=== PATIENT | female | born 1980 | race American Indian/Alaskan Native ===

== ENCOUNTER 2017-03-14 17:24 | Emergency (ER) | payer OTHER ==
[2017-03-14 17:24] VITALS: BMI 42.5
[2017-03-14] MEDS ORDERED: Acetaminophen 650mg/20.3ml solution UD PO STA (17:39)
--- NOTE | 2017-03-14 17:48 | ED PDOC ---
Arrival/HPI - General Chief Complaint: Abdominal Pain Time Seen by Provider: 03/14/17 17:28 Historian: Patient - History of Present Illness Narrative History of Present Illness (Text): 03/14/17 17:48 A 36 year old female, whose past medical history includes hypertension, presents to the emergency department complaining of lower abdominal pain. pain is shart pain to the suprapubic region. Patient is currently on her menstrual cycle and describes pain as cramping. Reports no bowel movements in two days. Patient also notes a cough,a runny nose, and nausea but denies any vomiting, diarrhea or any other complaints at this time. pt reports "heavy periods", no gi bleeding, dark stool, melena, hematochezia. 03/14/17 21:41 Symptom Onset: Sudden Symptom Course: Unchanged Quality: Cramping Activities at Onset: Rest Context: Home Past Medical History - Provider Review Nursing Documentation Reviewed: Yes - Infectious Disease Hx of Infectious Diseases: None - Cardiac Hx Hypertension: Yes - Hematological/Oncological Hx Anemia: Yes - Psychiatric Hx Substance Use: No - Surgical History Hx Section: Yes (x1) - Anesthesia Hx Anesthesia: No - Suicidal Assessment Feels Threatened In Home Enviroment: No Family/Social History - Physician Review Nursing Documentation Reviewed: Yes Family/Social History: No Known Family HX Smoking Status: Unknown If Ever Smoked Hx Alcohol Use: Yes Hx Substance Use: No Hx Substance Use Treatment: No Allergies/Home Meds Allergies/Adverse Reactions: Allergies Penicillins Allergy (Verified 03/14/17 17:34) ANAPHYLAXIS Review of Systems - Physician Review All systems were reviewed & negative as marked: Yes - Review of Systems ENT: Other (runny nose) Respiratory: Cough Gastrointestinal: Abdominal Pain (lower ), Nausea. absent: Diarrhea, Vomiting Physical Exam Vital Signs Reviewed: Yes Vital Signs Temp Pulse Resp BP Pulse Ox 03/14/17 21:25 87 18 129/81 98 03/14/17 19:24 85 18 130/79 98 03/14/17 17:24 98.6 F 93 H 18 127/80 98 Appearance: Positive for: Well-Appearing, Non-Toxic, Comfortable Pain Distress: None Mental Status: Positive for: Alert and Oriented X 3 - Systems Exam Head: Present: Atraumatic, Normocephalic Pupils: Present: PERRL Extroacular Muscles: Present: EOMI Conjunctiva: Present: Normal Mouth: Present: Moist Mucous Membranes Neck: Present: Normal Range of Motion Respiratory/Chest: Present: Clear to Auscultation, Good Air Exchange. No: Respiratory Distress, Accessory Muscle Use Cardiovascular: Present: Regular Rate and Rhythm, Normal S1, S2. No: Murmurs Abdomen: Present: Tenderness (RLQ and LLQ), Normal Bowel Sounds. No: Distention , Peritoneal Signs Back: Present: Normal Inspection Upper Extremity: Present: Normal Inspection. No: Cyanosis, Edema Lower Extremity: Present: Normal Inspection. No: Edema Neurological: Present: GCS=15, CN II-XII Intact, Speech Normal Skin: Present: Warm, Dry, Normal Color. No: Rashes Psychiatric: Present: Alert, Oriented x 3, Normal Insight, Normal Concentration Medical Decision Making ED Course and Treatment: 03/14/17 17:46 Impression: A 36 year old female with lower abdominal pain. r/o fibrioids, ovarian cyst, appendicitis Plan: -- US transvaginal -- labs -- Urinalysis -- Tylenol -- Reassess and disposition Prior Visits: Notes and results from previous visits were reviewed. Patient was last seen in the emergency department on 12/29/14 for evaluation of b/l knee pain. Progress Notes: US Pelvis Complete, Transabdominal FINDINGS: Limitations: Body habitus. Uterus/cervix: Uterus measures 11.7 x 5.7 x 6.5 cm in size. No myometrial mass. Nabothian cysts. Endometrium: 0.8 cm in thickness. Right ovary: Not visualized. Left ovary: 2.5 x 3.1 x 2.7 cm in size. No mass. Normal flow. Free fluid: No significant free fluid. Bladder: Unremarkable as visualized. IMPRESSION: 1. No acute findings. US Pelvis, Transvaginal FINDINGS: Limitations: Body habitus. Uterus/cervix: Uterus measures 11.7 x 5.7 x 6.5 cm in size. No myometrial mass. Nabothian cysts. Endometrium: 0.8 cm in thickness. Right ovary: Not visualized. Left ovary: 2.5 x 3.1 x 2.7 cm in size. No mass. Normal flow. Free fluid: No significant free fluid. Bladder: Empty bladder which cannot be evaluated with this probe. IMPRESSION: 1. No acute findings. Dictated and Authenticated by: Alex Lopes MD 03/14/2017 7:28 PM Eastern Time ([place] & [place]) CT Abdomen and Pelvis With Intravenous Contrast IMPRESSION: 1. Probable left basilar pneumonia. Followup to resolution to exclude underlying pathology. 2. Pulmonary nodules. For low-risk patients, no follow-up is necessary. For high -risk patients (smoking history or other known risk factors) an optional CT at 12 months could be performed. 3. Incidental/non-acute findings are described above. Dictated and Authenticated by: Alex Lopes MD 03/14/2017 9:02 PM Eastern Time ([place] & [place]) 03/14/17 21:17 Leaving Against Medical Advice (AMA): The patient is choosing to leave against medical advice. I have personally explained to the patient that choosing to do so may result in permanent bodily harm or . I have discussed at great length that without further evaluation and monitoring there may be unforeseen circumstances and/or deterioration causing permanent bodily harm or as a result of their choice. The patient is alert, oriented, and shows the mental capacity to make clear decisions regarding the patients health care at this time. The patient continues to wish to leave against medical advice. The patient has been advised that they should return to the emergency room immediately if they change their mind at any time, or if their condition begins to change or worsen in any way. 03/14/17 21:41 pt noted to be anemic. reports heavy periods. ct also shows possible pna. pt reports significant fatigue. requested pt to be admitted for possible blood transfusion and iv antibiotics. pt refuses. understands risks. signs ama. [facility] called later with addendum of possible filling defect, possible pe. pt left the department prior to addendum. attempted to reach pt to notify, number is incorrect. Addendum created by Alex Lopes MD on 03/14/2017 9:36 PM Eastern Time ([place] & [place]) THIS REPORT CONTAINS FINDINGS THAT MAY BE CRITICAL TO PATIENT CARE. The findings were verbally communicated via telephone conference with Luis Angel Irvin at 9:36 PM EST on 03/14/2017. The findings were acknowledged and understood. Addendum created by Alex Lopes MD on 03/14/2017 9:18 PM Eastern Time ([place] & [place]) CORRECTION Lower thorax: Groundglass opacities within left upper, lower lobes. Patchy airspace disease within posterior left lower lobe. Apparent filling defects within branches of left lower lobe pulmonary artery, possibly branches of right lower lobe pulmonary artery. 0.4 cm LEFT upper lobe nodule. IMPRESSION: 1. Suspect pulmonary emboli. Suggest chest CTA when clinically able. 2. Left basilar groundglass/airspace disease. DDX: Pneumonia, infarct. 3. Pulmonary nodules. For low-risk patients, no follow-up is necessary. For high -risk patients (smoking history or other known risk factors) an optional CT at 12 months could be performed. 4. Incidental/non-acute findings are described above. Initial Report created on 03/14/2017 9:02 PM Eastern Time ([place] & [place]) 03/16/17 19:32 vrad later noted addedum. non working numbers, telegram sent. - Lab Interpretations Microbiology Results: Microbiology Results 03/14/17 17:55 Urine,Clean Catch Urine Culture - Final No Growth (<1,000 CFU/ML) Lab Results: 03/14/17 17:55 03/14/17 17:55 Lab Results 03/14/17 21:00: Blood Type Confirm O POSITIVE 03/14/17 20:09: Blood Type O POSITIVE, Antibody Screen Positive, Antibody Identification Anti M, Antigen Identification M Antigen - NEGATIVE, BBK History Checked No verified bt 03/14/17 17:55: Sodium 141, Potassium 4.1, Chloride 107, Carbon Dioxide 26, Anion Gap 12, BUN 7, Creatinine 0.8, Est GFR ( Amer) > 60, Est GFR (Non- Af Amer) > 60, Random Glucose 92, Calcium 8.8, Total Bilirubin 0.3, AST 26, ALT 23, Alkaline Phosphatase 94, Total Protein 8.1, Albumin 3.8, Globulin 4.3, Albumin/Globulin Ratio 0.9 L, Lipase 45 03/14/17 17:55: PT 12.4, INR 1.13 H, APTT 27.9 03/14/17 17:55: WBC 10.6, RBC 4.34, Hgb 7.6 L, Hct 28.4 L, MCV 65.4 L, MCH 17.5 L, MCHC 26.8 L, RDW 19.3 H, Plt Count 386, MPV 9.0, Gran % 71.6 H, Lymph % (Auto ) 19.5 L, Roberts % (Auto) 7.8 H, Eos % (Auto) 1.0 L, Baso % (Auto) 0.1, Gran # 7.57 H, Lymph # 2.1, Roberts # 0.8 H, Eos # 0.1, Baso # 0.01 03/14/17 17:48: Urine Color Light red, Urine Appearance Turbid, Urine pH 6.0, Ur Specific [place] 1.020, Urine Protein 30 H, Urine Glucose (UA) Negative, Urine Ketones Negative, Urine Blood Large H, Urine Nitrate Negative, Urine Bilirubin Negative, Urine Urobilinogen 0.2, Ur Leukocyte Esterase Moderate H, Urine RBC Tntc, Urine WBC 15 - 20, Ur Epithelial Cells 6 - 8, Urine Bacteria Few , Urine HCG, Qual Negative I have reviewed the lab results: Yes - RAD Interpretation Radiology Orders: 03/14/17 17:40 TRANSVAGINAL [US] Stat 03/14/17 19:32 ABD & PELVIS IV CONTRAST ONLY [CT] Stat - Medication Orders Current Medication Orders: Discontinued Medications Acetaminophen (Tylenol 650mg/20.3ml Solution Ud) 975 mg PO STAT STA Stop: 03/14/17 17:40 Last Admin: 03/14/17 18:06 Dose: 975 mg MAR Pain/Vitals Document 03/14/17 18:06 GMD (Rec: 03/14/17 18:07 [id number] Pain Reassessment Is This A Pain ReAssessment? No Sleep Is patient sleeping during reassessment? No Presence of Pain Presence of Pain Yes Location Pain Location Body Site Abdomen Sodium Chloride (Sodium Chloride 0.9%) 1,000 mls @ 999 mls/hr IV .Q1H1M STA Stop: 03/14/17 19:20 Last Admin: 03/14/17 19:11 Dose: 999 mls/hr eMAR Start Stop Document 03/14/17 19:11 GMD (Rec: 03/14/17 19:11 [id number] Intravenous Solution Start Date 03/14/17 Start Time 19:11 End Date 03/14/17 End time 20:12 Total Infusion Time 61 Levofloxacin (Levaquin) 750 mg PO STAT STA Stop: 03/14/17 21:14 Last Admin: 03/14/17 21:25 Dose: 750 mg - Scribe Statement The provider has reviewed the documentation as recorded by the Scribe Belqes Mau Provider Scribe Attestation: All medical record entries made by the Chayoibjonna were at my direction and personally dictated by me. I have reviewed the chart and agree that the record accurately reflects my personal performance of the history, physical exam, medical decision making, and the department course for this patient. I have also personally directed, reviewed, and agree with the discharge instructions and disposition. Disposition/Present on Arrival - Present on Arrival Any Indicators Present on Arrival: No History of DVT/PE: No History of Uncontrolled Diabetes: No Urinary Catheter: No History of Decub. Ulcer: No History Surgical Site Infection Following: None - Disposition Have Diagnosis and Disposition been Completed?: Yes Diagnosis: Anemia, Abdominal pain, Pneumonia Disposition: AGAINST MEDICAL ADVICE Disposition Time: 10:00 Condition: UNKNOWN Discharge Instructions (ExitCare): Dysfunctional Uterine Bleeding (ED), Bacterial Pneumonia (ED), Against Medical Advice (ED), Anemia (ED) Additional Instructions: please follwow up with your doctor/specialist. return to er with worsening symptoms or concerns. Prescriptions: levoFLOXacin [Levaquin] 750 mg PO DAILY #10 tab Referrals: oSfi Segura, [Primary Care Provider] - Follow up with primary Ger Ramirez MD [Medical Doctor] - Follow up with primary Andie Mijares MD [Medical Doctor] - Follow up with primary Forms: [email or web address] (Spanish)
[2017-03-14 17:59] LABS: URINE BILIRUBIN NEGATIVE (NEGATIVE); URINE BLOOD LARGE (NEGATIVE); URINE GLUCOSE (UA) NEGATIVE (NEGATIVE); URINE KETONE NEGATIVE (NEGATIVE); URINE LEUKOCYTE ESTERASE MODERATE Leu/uL (NEGATIVE); URINE PROTEIN 30 mg/dL (<30 mg/dL); URINE UROBILINOGEN 0.2 E.U./dL (<1 E.U./dL)
[2017-03-14 18:00] LABS: URINE APPEARANCE TURBID (CLEAR); URINE COLOR LIGHT RED (YELLOW)
[2017-03-14 18:12] LABS: URINE BACTERIA FEW (NEG); URINE RBC TNTC /hpf (0-2); URINE WBC 15 - 20 /hpf (0-6)
[2017-03-14 18:13] VITALS: RESP 18; TEMP 98.6; O2SAT 98
[2017-03-14 18:15] LABS: BASO # 0.01 K/mm3 (0.0-2.0); BASO % 0.1 % (0.0-3.0); EOS # 0.1 (0.0-0.7); GRAN # 7.57 (1.4-6.5); GRAN % 71.6 % (50.0-68.0); HEMATOCRIT 28.4 % (36.0-48.0); LYMPH # 2.1 (1.2-3.4); LYMPH % 19.5 % (22.0-35.0); MEAN CELL VOLUME 65.4 fl (80.0-105.0); MEAN CORPUSCULAR HEMOGLOBIN 17.5 pg (25.0-35.0); MEAN CORPUSCULAR HGB CONC 26.8 g/dl (31.0-37.0); MONO # 0.8 (0.1-0.6); MONO % 7.8 % (1.0-6.0); RED CELL DISTRIBUTION WIDTH 19.3 % (11.5-14.5); WHITE BLOOD COUNT 10.6 10^3/ul (4.5-11.0)
[2017-03-14] MEDS ORDERED: Sodium Chloride 0.9% 1,000 ML IV STA (18:20)
[2017-03-14 18:25] LABS: ALB/GLOB RATIO 0.9 (1.1-1.8); ALKALINE PHOSPHATASE 94 U/L (38-126); ALT/SGPT 23 U/L (7-56); AST/SGOT 26 U/L (14-36); BILIRUBIN,TOTAL 0.3 mg/dL (0.2-1.3); BLOOD UREA NITROGEN 7 mg/dL (7-21); CALCIUM 8.8 mg/dL (8.4-10.5); CARBON DIOXIDE 26 mmol/L (21-33); CHLORIDE 107 mmol/L (98-107); GFR AFRICAN-AMERICAN > 60; GLUCOSE,RANDOM 92 mg/dL (70-110); INR 1.13 (0.93-1.08); LIPASE 45 U/L (23-300); PARTIAL THROMBOPLASTIN TIME 27.9 Seconds (25.1-36.5); POTASSIUM 4.1 mmol/L (3.6-5.0); SODIUM 141 mmol/L (132-148); TOTAL PROTEIN 8.1 g/dL (5.8-8.3)
--- NOTE | 2017-03-14 19:29 | US ---
EXAM: US Pelvis Complete, Transabdominal CLINICAL HISTORY: 36 years old, female; Pain; Pelvic pain; Patient HX: Patient 273lbs TECHNIQUE: Real-time transabdominal pelvic ultrasound (complete) with image documentation. COMPARISON: No relevant prior studies available. FINDINGS: Limitations: Body habitus. Uterus/cervix: Uterus measures 11.7 x 5.7 x 6.5 cm in size. No myometrial mass. Nabothian cysts. Endometrium: 0.8 cm in thickness. Right ovary: Not visualized. Left ovary: 2.5 x 3.1 x 2.7 cm in size. No mass. Normal flow. Free fluid: No significant free fluid. Bladder: Unremarkable as visualized. IMPRESSION: 1.No acute findings. EXAM: US Pelvis, Transvaginal CLINICAL HISTORY: 36 years old, female; Pain; Pelvic pain; Patient HX: Patient 273lbs TECHNIQUE: Real-time transvaginal pelvic ultrasound (complete) with image documentation. Transvaginal imaging was used for better evaluation of the endometrium and adnexa. COMPARISON: No relevant prior studies available. FINDINGS: Limitations: Body habitus. Uterus/cervix: Uterus measures 11.7 x 5.7 x 6.5 cm in size. No myometrial mass. Nabothian cysts. Endometrium: 0.8 cm in thickness. Right ovary: Not visualized. Left ovary: 2.5 x 3.1 x 2.7 cm in size. No mass. Normal flow. Free fluid: No significant free fluid. Bladder: Empty bladder which cannot be evaluated with this probe. IMPRESSION: 1.No acute findings.
[2017-03-14] MEDS ORDERED: Iohexol 350 MG/100 ML VIAL ONE (19:36)
--- NOTE | 2017-03-14 21:03 | CT ---
EXAM: CT Abdomen and Pelvis With Intravenous Contrast CLINICAL HISTORY: 36 years old, female; Pain; Abdominal pain; Localized; Lower; Prior surgery; Surgery date: 6+ months; Surgery type: HX section; Additional info: Lower abd pain TECHNIQUE: Axial computed tomography images of the abdomen and pelvis with intravenous contrast. All CT scans at this facility use one or more dose reduction techniques, viz.: automated exposure control; ma/kV adjustment per patient size (including targeted exams where dose is matched to indication; i.e. head); or iterative reconstruction technique. Coronal and sagittal reformatted images were created and reviewed. CONTRAST: 100 mL of OMNI 350 administered intravenously. COMPARISON: US - TRANSVAGINAL 2017-03-14 18:19 FINDINGS: Lower thorax: Groundglass opacities within left upper, lower lobes. Patchy airspace disease within posterior left lower lobe. 0.4 cm LEFT upper lobe nodule. ABDOMEN: Liver: Unremarkable. No mass. Gallbladder and bile ducts: No calcified stones. No ductal dilation. Pancreas: No ductal dilation. No mass. Spleen: No splenomegaly. Probable splenule. Adrenals: No mass. Kidneys and ureters: No mass. No hydronephrosis. Stomach and bowel: No definite mural thickening. No obstruction. Appendix: Normal caliber. No inflammation. PELVIS: Bladder: Unremarkable. Reproductive: Unremarkable as visualized. ABDOMEN and PELVIS: Intraperitoneal space: No significant fluid collection. No free air. Bones/joints: Bone island. No acute fracture. Soft tissues: Pfannenstiel scar. Tiny umbilical hernia containing fat. Vasculature: Unremarkable. No aneurysm. Lymph nodes: No pathologically enlarged lymph nodes. IMPRESSION: 1. Probable left basilar pneumonia. Followup to resolution to exclude underlying pathology. 2. Pulmonary nodules. For low-risk patients, no follow-up is necessary. For high-risk patients (smoking history or other known risk factors) an optional CT at 12 months could be performed. 3. Incidental/non-acute findings are described above.
[2017-03-14] MEDS ORDERED: levoFLOXacin 750 mg in D5W 750 MG/150 ML BAG IVPB STA (21:06)
[2017-03-14] MEDS ORDERED: levoFLOXacin 750 MG TAB PO STA (21:13)
[2017-03-14 21:50] VITALS: BP 129/81; PULSE 87
== END 2017-03-14 21:30 | disposition left against medical advice (07) ==
LOC: ED 17:24
DX: D64.9 Anemia, unspecified (principal); J18.9 Pneumonia, unspecified organism; R10.30 Lower abdominal pain, unspecified; I10 Essential (primary) hypertension
CPT/HCPCS: 74177; 76830; 80053; 81001; 83690; 84703; 85025; 85610; 85730; 86850; 86860; 86870; 86900; 87086; 96360; 99285; J7040; Q9967

== ENCOUNTER 2017-03-24 04:43 | Inpatient (IN) | payer OTHER ==
[2017-03-24 04:48] VITALS: BMI 46.8
--- NOTE | 2017-03-24 05:09 | ED PDOC ---
Arrival/HPI - General Chief Complaint: Chest Pain Time Seen by Provider: 03/24/17 04:50 Historian: Patient - History of Present Illness Narrative History of Present Illness (Text): 03/24/17 05:08 She Parisi is a 36 year old female, whose past medical history includes hypertension, who presents to the Emergency department complaining of chest pain and shortness of breath tonight. Patient also reports associated cough and chills for the past few days. Patient was seen in the Emergency department for similar symptoms and noted to be anemic with possible pneumonia. Patient was offered hospital admission for blood transfusion and further evaluation but left against medical advice. Patient was given a presciption for Levaquin but states she never filled it. Addendum added to original CT report also noted possible PE, but patient left ER prior. Patient denies any fever, abdominal pain , nausea, vomiting, diarrhea, back pain, neck pain, headache, dizziness, or any other complaints. Symptom Onset: Gradual Symptom Course: Worsening Activities at Onset: Light Context: Home Past Medical History - Provider Review Nursing Documentation Reviewed: Yes - Infectious Disease Hx of Infectious Diseases: None - Cardiac Hx Hypertension: Yes - Hematological/Oncological Hx Anemia: Yes - Psychiatric Hx Depression: No Hx Emotional Abuse: No Hx Physical Abuse: No Hx Substance Use: No - Surgical History Hx Section: Yes (x1) - Anesthesia Hx Anesthesia: No - Suicidal Assessment Feels Threatened In Home Enviroment: No Family/Social History - Physician Review Nursing Documentation Reviewed: Yes Family/Social History: Unknown Family HX Smoking Status: Unknown If Ever Smoked Hx Alcohol Use: Yes Hx Substance Use: No Hx Substance Use Treatment: No Allergies/Home Meds Allergies/Adverse Reactions: Allergies Penicillins Allergy (Verified 03/24/17 04:48) ANAPHYLAXIS Home Medications: Home Meds Medication Instructions Recorded Confirmed No Known Home Med 03/24/17 03/24/17 Review of Systems - Physician Review All systems were reviewed & negative as marked: Yes - Review of Systems Constitutional: Other (+chills) Eyes: Normal ENT: Normal Respiratory: SOB, Cough Cardiovascular: Chest Pain Gastrointestinal: Normal. absent: Abdominal Pain, Diarrhea, Nausea, Vomiting Genitourinary Female: Normal. absent: Dysuria, Frequency, Hematuria, Urine Output Changes Musculoskeletal: Normal. absent: Back Pain, Neck Pain Skin: Normal. absent: Rash Neurological: Normal. absent: Headache, Dizziness Endocrine: Normal Hemo/Lymphatic: Normal Psychiatric: Normal Physical Exam Vital Signs Reviewed: Yes Vital Signs Temp Pulse Resp BP Pulse Ox 03/24/17 04:59 98.2 F 99 H 17 135/88 98 Temperature: Afebrile Blood Pressure: Normal Pulse: Regular Respiratory Rate: Normal Appearance: Positive for: Well-Appearing, Non-Toxic, Comfortable Pain Distress: None Mental Status: Positive for: Alert and Oriented X 3 - Systems Exam Head: Present: Atraumatic, Normocephalic Pupils: Present: PERRL Extroacular Muscles: Present: EOMI Conjunctiva: Present: Normal Mouth: Present: Moist Mucous Membranes Neck: Present: Normal Range of Motion Respiratory/Chest: Present: Rhonchi (Rhonchi bilaterally). No: Respiratory Distress, Accessory Muscle Use Cardiovascular: Present: Regular Rate and Rhythm, Normal S1, S2. No: Murmurs Abdomen: Present: Normal Bowel Sounds. No: Tenderness, Distention, Peritoneal Signs Back: Present: Normal Inspection Upper Extremity: Present: Normal Inspection. No: Cyanosis, Edema Lower Extremity: Present: Normal Inspection. No: Edema Neurological: Present: GCS=15, CN II-XII Intact, Speech Normal Skin: Present: Warm, Dry, Normal Color. No: Rashes Psychiatric: Present: Alert, Oriented x 3, Normal Insight, Normal Concentration Medical Decision Making ED Course and Treatment: 03/24/17 05:08 Impression: 36 year old female complaining of chest pain, shortness of breath, chills, and cough. Plan: -- CTA Chest -- EKG -- Chest X-ray -- Labs, cardiac enzymes -- Reassess and disposition Prior Visits: Notes and results from previous visits were reviewed. On 03/14/2017, pt was seen in the Emergency department lower abdominal pain, cough, runny nose, and nausea. Pt noted to be anemic and underwent CT Abdomen and Pelvis which showed: 1. Suspect pulmonary emboli. Suggest chest CTA when clinically able. 2. Left basilar groundglass/airspace disease. DDX: Pneumonia, infarct. 3. Pulmonary nodules. For low-risk patients, no follow-up is necessary. For high-risk patients (smoking history or other known risk factors) an optional CT at 12 months could be performed. 4. Incidental/non-acute findings. Pt was d/c on Levaquin but left AMA prior to receiving CT addendum results. Progress Notes: Reviewed EKG, sinus tachycardia at 108 bpm. Non-specific T wave changes. - Lab Interpretations Lab Results: 03/24/17 05:00 03/24/17 05:00 Lab Results 03/24/17 05:00: WBC 14.7 H D, RBC 4.74, Hgb 8.1 L, Hct 30.9 L, MCV 65.2 L, MCH 17.1 L, MCHC 26.2 L, RDW 19.3 H, Plt Count 398, MPV 9.4 03/24/17 05:00: Sodium 142, Potassium 3.9, Chloride 105, Carbon Dioxide 26, Anion Gap 15, BUN 9, Creatinine 0.8, Est GFR ( Amer) > 60, Est GFR (Non- Af Amer) > 60, Random Glucose 101, Calcium 9.3, Total Bilirubin 0.4, AST 35, ALT 22, Alkaline Phosphatase 110, Lactate Dehydrogenase 763 H, Total Creatine Kinase 186, Troponin I < 0.01, Total Protein 8.7 H, Albumin 4.0, Globulin 4.7, Albumin/Globulin Ratio 0.9 L 03/24/17 05:00: PT 12.0, INR 1.09 H, APTT 28.6 - RAD Interpretation Radiology Orders: 03/24/17 05:14 CHEST PORTABLE [RAD] Stat 03/24/17 05:15 ANGIO CHEST PE PROTOCOL [CT] Stat - EKG Interpretation Interpreted by ED Physician: Yes Type: 12 lead EKG - Medication Orders Current Medication Orders: Levofloxacin/Dextrose (Levaquin 750mg) 750 mg in 150 mls @ 100 mls/hr IV STAT STA PRN Reason: Protocol Stop: 03/24/17 08:08 - Transfer of Care Patient signed out to Dr:: Shelia Pending Radiology Studies:: CT Angio Chest/reassess/final disposition - Scribe Statement The provider has reviewed the documentation as recorded by the Chayoibjonna Peres Provider Scribe Attestation: All medical record entries made by the Scribe were at my direction and personally dictated by me. I have reviewed the chart and agree that the record accurately reflects my personal performance of the history, physical exam, medical decision making, and the department course for this patient. I have also personally directed, reviewed, and agree with the discharge instructions and disposition. Disposition/Present on Arrival - Present on Arrival Any Indicators Present on Arrival: No History of DVT/PE: No History of Uncontrolled Diabetes: No Urinary Catheter: No History of Decub. Ulcer: No History Surgical Site Infection Following: None - Disposition Have Diagnosis and Disposition been Completed?: No Diagnosis: Chest pain, SOB (shortness of breath) Disposition Time: 07:00 Condition: STABLE Discharge Instructions (ExitCare): Chest Pain (ED) Forms: [employer] ([place])
[2017-03-24 06:04] LABS: HEMOGLOBIN 8.1 g/dL (12.0-16.0); MEAN CELL VOLUME 65.2 fl (80.0-105.0); MEAN CORPUSCULAR HEMOGLOBIN 17.1 pg (25.0-35.0); MEAN CORPUSCULAR HGB CONC 26.2 g/dl (31.0-37.0); MEAN PLATELET VOLUME 9.4 fl (7.0-11.0); RBC 4.74 10^6/uL (3.5-6.1); RED CELL DISTRIBUTION WIDTH 19.3 % (11.5-14.5); WHITE BLOOD COUNT 14.7 10^3/ul (4.5-11.0)
[2017-03-24 06:18] LABS: INR 1.09 (0.93-1.08); PARTIAL THROMBOPLASTIN TIME 28.6 Seconds (25.1-36.5)
[2017-03-24 06:21] LABS: TROPONIN I < 0.01 ng/mL
[2017-03-24 06:33] LABS: ALB/GLOB RATIO 0.9 (1.1-1.8); ALT/SGPT 22 U/L (7-56); AST/SGOT 35 U/L (14-36); BLOOD UREA NITROGEN 9 mg/dL (7-21); CALCIUM 9.3 mg/dL (8.4-10.5); GFR AFRICAN-AMERICAN > 60; GFR NON-AFRICAN AMERICAN > 60
[2017-03-24] MEDS ORDERED: levoFLOXacin 750 mg in D5W 750 MG/150 ML BAG IV STA (06:39)
[2017-03-24] MEDS ORDERED: Iohexol 300 100 ML IJ ONE (07:03)
--- NOTE | 2017-03-24 08:00 | ED PDOC ---
Physical Exam Vital Signs Reviewed: Yes Vital Signs Temp Pulse Resp BP Pulse Ox 03/24/17 04:59 98.2 F 99 H 17 135/88 98 Appearance: Positive for: Well-Appearing, Non-Toxic, Comfortable Pain Distress: None Mental Status: Positive for: Alert and Oriented X 3 Medical Decision Making ED Course and Treatment: 03/24/17 07:00 Case signed out to me by Dr. Hinkle. Pending follow up CT angio chest, reassessment and final disposition. 03/24/17 12:[address] scan; CT chest done without contrast. CTA repeated and shows PE. pt started on lovenox. - Lab Interpretations Lab Results: 03/24/17 05:00 03/24/17 05:00 Lab Results 03/24/17 05:00: WBC 14.7 H D, RBC 4.74, Hgb 8.1 L, Hct 30.9 L, MCV 65.2 L, MCH 17.1 L, MCHC 26.2 L, RDW 19.3 H, Plt Count 398, MPV 9.4 03/24/17 05:00: Sodium 142, Potassium 3.9, Chloride 105, Carbon Dioxide 26, Anion Gap 15, BUN 9, Creatinine 0.8, Est GFR ( Amer) > 60, Est GFR (Non- Af Amer) > 60, Random Glucose 101, Calcium 9.3, Total Bilirubin 0.4, AST 35, ALT 22, Alkaline Phosphatase 110, Lactate Dehydrogenase 763 H, Total Creatine Kinase 186, Troponin I < 0.01, Total Protein 8.7 H, Albumin 4.0, Globulin 4.7, Albumin/Globulin Ratio 0.9 L 03/24/17 05:00: PT 12.0, INR 1.09 H, APTT 28.6 I have reviewed the lab results: Yes - RAD Interpretation Radiology Orders: 03/24/17 05:14 CHEST PORTABLE [RAD] Stat 03/24/17 05:15 ANGIO CHEST PE PROTOCOL [CT] Stat 03/24/17 12:21 CHEST W/O CONTRAST [CT] Stat 03/24/17 12:23 LUNG PERF & VENT SCAN [NM] Stat - Medication Orders Current Medication Orders: Discontinued Medications Levofloxacin/Dextrose (Levaquin 750mg) 750 mg in 150 mls @ 100 mls/hr IV STAT STA PRN Reason: Protocol Stop: 03/24/17 08:08 Last Admin: 03/24/17 08:49 Dose: 100 mls/hr eMAR Start Stop Document 03/24/17 08:49 GMI (Rec: 03/24/17 08:50 GMI [id number]) Intravenous Solution Start Date 03/24/17 Start Time 08:50 End Date 03/24/17 End time 08:55 Total Infusion Time 5 Re-Assess: Re-Assessment for infusion Document 03/24/17 09:06 GMI (Rec: 03/24/17 09:06 GMI [id number]) Infusion Charges Initiated Have Infusion Stop Date and Time been Yes entered? - Scribe Statement The provider has reviewed the documentation as recorded by the Georgie León Provider Scribe Attestation: All medical record entries made by the Scribe were at my direction and personally dictated by me. I have reviewed the chart and agree that the record accurately reflects my personal performance of the history, physical exam, medical decision making, and the department course for this patient. I have also personally directed, reviewed, and agree with the discharge instructions and disposition. Disposition/Present on Arrival - Present on Arrival Any Indicators Present on Arrival: No History of DVT/PE: No History of Uncontrolled Diabetes: No Urinary Catheter: No History of Decub. Ulcer: No History Surgical Site Infection Following: None - Disposition Have Diagnosis and Disposition been Completed?: Yes Diagnosis: Chest pain, SOB (shortness of breath), Pulmonary embolism Disposition: HOSPITALIZED Disposition Time: 15:03 Condition: STABLE
--- NOTE | 2017-03-24 12:18 | RAD ---
HISTORY: SOB COMPARISON: Comparison chest 07/13/2013 FINDINGS: LUNGS: Poor inspiration with low lung volumes, crowded bronchovascular markings and mild bibasilar atelectasis. PLEURA: No significant pleural effusion identified, no pneumothorax apparent. CARDIOVASCULAR: Cardiomegaly. OSSEOUS STRUCTURES: No significant abnormalities. VISUALIZED UPPER ABDOMEN: Normal. OTHER FINDINGS: None. IMPRESSION: Poor inspiration with low lung volumes, crowded bronchovascular markings and mild bibasilar atelectasis.
[2017-03-24] MEDS ORDERED: Azithromycin 500MG/NS 250ml 500 MG/250 ML BAG IVPB STA (12:24)
[2017-03-24] MEDS ORDERED: cefTRIAXone 1 gm 1 GM/100 ML BAG IVPB STA (12:27)
[2017-03-24] MEDS ORDERED: Sodium Chloride 0.9% 1,000 ML IV SCH (12:45)
[2017-03-24] MEDS ORDERED: Iodixanol 320 MG/ML 100 ML BOTTLE IV ONE (13:53)
--- NOTE | 2017-03-24 15:35 | CARD ---
APPROVED REPORT EKG Measurement Heart [id number] <Conclusion> Sinus tachycardia Nonspecific T wave abnormality Abnormal ECG
[2017-03-24] MEDS ORDERED: Enoxaparin 120 mg Syringe SC STA (15:56)
--- NOTE | 2017-03-24 16:00 | CP.PCM.HP ---
<Addy Haddad - Last Filed: 03/24/17 16:28> History of Present Illness - History of Present Illness History of Present Illness: cc: chest pain HPI: Patient is a 36yo female with past medical history of hypertension that presented c/o chest pain. She reported that the chest pain began 1 week prior and was associated with shortness of breath. She reported having come to [place] ED on the for similar symptoms and signed out AMA at that time. Today, she reports that her chest pain has been worsening over the last week and she has difficulty breathing most notably on inspiration. She stated that the chest pain also started radiating to her left shoulder. She admitted to subjective fevers and chills. In the ED, CTA with PE protocol was done and was notable for PE. Patient was subsequently admitted for further evaluation/ treatment. 12point ROS as per HPI above, otherwise negative PMH: hypertension PSH: x1, 14 yrs prior Allergies: reported being told she was allergic to penicillin however tolerated rocephin in the ED Social Hx: Denies tobacco use, admits to alcohol use daily, denies illicit drug use Family Hx: Mother: HTN; Father: unknown Present on Admission - Present on Admission Any Indicators Present on Admission: No Past Patient History - Infectious Disease Hx of Infectious Diseases: None - Past Social History Smoking Status: Unknown If Ever Smoked - CARDIAC Hx Hypertension: Yes - HEMATOLOGICAL/ONCOLOGICAL Hx Anemia: Yes - PSYCHIATRIC Hx Depression: No Hx Emotional Abuse: No Hx Physical Abuse: No Hx Substance Use: No - SURGICAL HISTORY Hx Section: Yes (x1) - ANESTHESIA Hx Anesthesia: No Meds Allergies/Adverse Reactions: Allergies Allergy/AdvReac Type Severity Reaction Status Date / Time Penicillins Allergy ANAPHYLAXIS Verified 03/24/17 04:48 levofloxacin [From Levaquin] AdvReac ITCHING Verified 03/24/17 09:19 Physical Exam - Constitutional Appears: No Acute Distress Additional comments: obese - Head Exam Head Exam: ATRAUMATIC, NORMAL INSPECTION, NORMOCEPHALIC - Eye Exam Eye Exam: EOMI, PERRL - ENT Exam ENT Exam: Mucous Membranes Moist - Neck Exam Neck exam: Positive for: Normal Inspection - Respiratory Exam Respiratory Exam: Decreased Breath Sounds. absent: Rales, Rhonchi, Wheezes - Cardiovascular Exam Cardiovascular Exam: RRR, +S1, +S2. absent: Gallop, JVD, Rubs, Systolic Murmur - GI/Abdominal Exam GI & Abdominal Exam: Soft. absent: Distended, Firm, Guarding, Rebound, Rigid, Tenderness - Extremities Exam Extremities exam: Positive for: normal inspection. Negative for: calf tenderness, tenderness Additional comments: non-pitting edema - Neurological Exam Neurological exam: Alert, CN II-XII Intact, Oriented x3 - Psychiatric Exam Psychiatric exam: Normal Affect, Normal Mood - Skin Skin Exam: Dry, Intact, Normal Color, Warm Results - Vital Signs Recent Vital Signs: Last Vital Signs Temp 98 F 03/24/17 10:43 Pulse 99 H 03/24/17 10:43 Resp 19 03/24/17 10:43 BP 123/81 03/24/17 12:47 Pulse Ox 99 03/24/17 10:43 - Labs Result Diagrams: 03/24/17 05:00 03/24/17 05:00 Labs: Laboratory Results - last 24 hr 03/24/17 03/24/17 03/24/17 05:00 05:00 05:00 WBC 14.7 H D RBC 4.74 Hgb 8.1 L Hct 30.9 L MCV 65.2 L MCH 17.1 L MCHC 26.2 L RDW 19.3 H Plt Count 398 MPV 9.4 Retic Count PT 12.0 INR 1.09 H APTT 28.6 Sodium 142 Potassium 3.9 Chloride 105 Carbon Dioxide 26 Anion Gap 15 BUN 9 Creatinine 0.8 Est GFR ( Amer) > 60 Est GFR (Non-Af Amer) > 60 Random Glucose 101 Calcium 9.3 Total Bilirubin 0.4 AST 35 ALT 22 Alkaline Phosphatase 110 Lactate Dehydrogenase 763 H Total Creatine Kinase 186 Troponin I < 0.01 Total Protein 8.7 H Albumin 4.0 Globulin 4.7 Albumin/Globulin Ratio 0.9 L 03/24/17 05:00 WBC RBC Hgb Hct MCV MCH MCHC RDW Plt Count MPV Retic Count 2.10 H PT INR APTT Sodium Potassium Chloride Carbon Dioxide Anion Gap BUN Creatinine Est GFR ( Amer) Est GFR (Non-Af Amer) Random Glucose Calcium Total Bilirubin AST ALT Alkaline Phosphatase Lactate Dehydrogenase Total Creatine Kinase Troponin I Total Protein Albumin Globulin Albumin/Globulin Ratio Assessment & Plan - Assessment and Plan (Free Text) Plan: 36yo female with history of hypertension presents c/o chest pain secondary to pulmonary embolism 1. Pulmonary embolism -CTA reviewed; revealed large pulmonary embolus seen in the left lower lobe pulmonary artery with associated infarct and small left-sided effusion; see full report for further details -EKG reviewed; revealed sinus tachycardia at 108bpm with nonspecific T wave abnormality -CXR reviewed; revealed poor inspiration with low lung volume, crowded bronchovascular markings and mild bibasilar atelectasis -Patient received therapeutic lovenox in the ED, will continue with lovenox 1mg/ kg SC q12h -Lower extremity duplex pending -Coagulopathy workup pending: factor V leidin, prothrombin, protein c, protein s , etc. -Pulmonary consulted - Dr. Bruner -Patient to be transitioned to oral anticoagulation 2. Hypertension -Reportedly not on oral antihypertensives; will monitor at this time 3. GI/DVT prophylaxis -protonix/lovenox Patient seen and case discussed/reviewed with attending, Dr. Fischer <Aleisha Fischer - Last Filed: 03/25/17 14:40> Results - Vital Signs Recent Vital Signs: Last Vital Signs Temp 98.3 F 03/25/17 06:00 Pulse 90 03/25/17 06:00 Resp 18 03/25/17 06:00 BP 99/49 L 03/25/17 06:00 Pulse Ox 100 03/25/17 10:00 - Labs Result Diagrams: 03/25/17 06:30 03/25/17 06:30 Labs: Laboratory Results - last 24 hr 03/24/17 03/24/17 03/24/17 16:50 16:50 16:50 WBC RBC Hgb Hct MCV MCH MCHC RDW Plt Count MPV Gran % Lymph % (Auto) [place] % (Auto) Eos % (Auto) Baso % (Auto) Gran # Lymph # [place] # Eos # Baso # PT INR APTT Sodium Potassium Chloride Carbon Dioxide Anion Gap BUN Creatinine Est GFR ( Amer) Est GFR (Non-Af Amer) Random Glucose Calcium Iron 17 L TIBC 368 % Saturation 5 L Ferritin 3.9 Total Bilirubin AST ALT Alkaline Phosphatase Troponin I < 0.01 Total Protein Albumin Globulin Albumin/Globulin Ratio Vitamin B12 262 Folate 12.7 03/24/17 03/25/17 03/25/17 21:40 06:30 06:30 WBC 12.0 H RBC 4.21 Hgb 7.2 L Hct 27.4 L MCV 65.1 L MCH 17.1 L MCHC 26.3 L RDW 19.1 H Plt Count 261 MPV 9.3 Gran % 69.5 H Lymph % (Auto) 22.6 [place] % (Auto) 6.4 H Eos % (Auto) 1.4 L Baso % (Auto) 0.1 Gran # 8.30 H Lymph # 2.7 [place] # 0.8 H Eos # 0.2 Baso # 0.01 PT INR APTT Sodium 139 Potassium 4.6 Chloride 104 Carbon Dioxide 24 Anion Gap 15 BUN 9 Creatinine 0.7 Est GFR ( Amer) > 60 Est GFR (Non-Af Amer) > 60 Random Glucose 94 Calcium 9.1 Iron TIBC % Saturation Ferritin Total Bilirubin 0.4 AST 19 ALT 31 Alkaline Phosphatase 97 Troponin I < 0.01 Total Protein 7.5 Albumin 3.4 Globulin 4.1 Albumin/Globulin Ratio 0.8 L Vitamin B12 Folate 03/25/17 06:30 WBC RBC Hgb Hct MCV MCH MCHC RDW Plt Count MPV Gran % Lymph % (Auto) [place] % (Auto) Eos % (Auto) Baso % (Auto) Gran # Lymph # [place] # Eos # Baso # PT 13.0 H INR 1.18 H APTT 27.2 Sodium Potassium Chloride Carbon Dioxide Anion Gap BUN Creatinine Est GFR ( Amer) Est GFR (Non-Af Amer) Random Glucose Calcium Iron TIBC % Saturation Ferritin Total Bilirubin AST ALT Alkaline Phosphatase Troponin I Total Protein Albumin Globulin Albumin/Globulin Ratio Vitamin B12 Folate Attending/Attestation - Attestation I have personally seen and examined this patient.: Yes I have fully participated in the care of the patient.: Yes I have reviewed all pertinent clinical information: Yes Notes (Text): I have seen and examined the patient at bedside. Agree with the above note with the following additions/ exceptions: Briefly this is 36 year old female with history of uncontrolled hypertension non complaint with medications, chronic anemia, morbid obesity (BMI 46) who came for evaluation of dry cough, chest pain and shortness of breath. Patient was seen in ED about a week ago and was told that she needed to get blood transfusion. At that time, patient decided to leave AMA because she was feeling better. She came back today for worsening of symptoms. CTA revealed large PE in LLL with associated infarct and small effusion. LE duplex and hypercoagulable work up ordered. She was started on lovenox. Will order procal. Will obtain pulmonary consult. Patient states that she has been sitting a lot due to recent illness. Denies smoking history, otc drug use, recent surgery, previous thromboembolism or FH of thromboembolism. Upon discharge patient will follow up with Dr Newton. Dr Aleisha Fischer
--- NOTE | 2017-03-24 16:17 | CT ---
PROCEDURE: CT Chest with contrast (Pulmonary Angiogram) HISTORY: SOB. Hypoxia. Rule out PE. COMPARISON: None available. TECHNIQUE: Axial computed tomography images were obtained of the chest in the pulmonary arterial phase of enhancement. Coronal and sagittal reformatted images were created and reviewed. Intravenous contrast dose: 100 cc Visipaque 320 Radiation dose: Total exam DLP = 529.72 mGy-cm. This CT exam was performed using one or more of the following dose reduction techniques: Automated exposure control, adjustment of the mA and/or kV according to patient size, and/or use of iterative reconstruction technique. FINDINGS: PULMONARY ARTERIES: The current study reveals large filling defect in the descending left pulmonary artery consistent with pulmonary embolus. Consolidation changes in the left lung base/posterior sulcus likely sequela of a infarct. Small associated left-sided effusion. Pulmonary trunk measures approximately 2.84 cm AORTA: No acute findings. No thoracic aortic aneurysm. Ascending thoracic aorta measures approximately 3.41 cm and descending thoracic aorta measures approximately 2.66 cm LUNGS: Unremarkable. No nodule, mass or pulmonary consolidation. PLEURAL SPACES: As above. No evidence of pneumothorax HEART: Heart remains enlarged. No significant pericardial effusion. . LYMPH NODES: Multiple pace may mildly enlarged bilateral axillary lymph nodes. BONES, CHEST WALL: Unremarkable. No fracture or destructive lesion OTHER FINDINGS: Liver is enlarged measuring nearly 20 cm in CC dimension. . Spleen remains enlarged measuring approximately 13 cm in AP dimension. IMPRESSION: Large pulmonary embolus seen in the left lower lobe pulmonary artery with associated infarct and small left-sided effusion as above. Enlarged bilateral axillary lymph nodes. Hepatomegaly. Splenomegaly. Findings discussed with Dr. Bass at approximately 3:50 p.m. with written down and read back verification.
[2017-03-24 17:22] LABS: IRON 17 ug/dL (45-180)
[2017-03-24 17:37] LABS: TOTAL IRON BINDING CAPACITY 368 ug/dL (265-497)
[2017-03-24] MEDS ORDERED: Iron Sucrose 100 mg/5 ml Inj IVP ONE (18:36)
[2017-03-24 19:04] LABS: % IRON SATURATION 5 % (20-55)
[2017-03-24 21:21] LABS: FERRITIN 3.9 ng/mL
[2017-03-24 21:54] LABS: FOLATE 12.7 ng/mL
[2017-03-25] MEDS: Enoxaparin 120 mg Syringe SC SCH ×2 (04:30→16:27)
--- NOTE | 2017-03-25 05:25 | CON ---
DATE: 03/24/2017 REFERRING PHYSICIAN: Scott Roberts MD HISTORY OF PRESENT ILLNESS: This is a 36-year-old female with past medical history significant for hypertension, came into the emergency room with a 1-week history of rhinitis, bronchitis, cough and chest pain. She was in the ER a few days ago and signed herself against medical advice and left, also claimed to have fever and chills. Head CT done, which shows large pulmonary emboli seen at the left upper lobe of pulmonary artery with associated infarct and small left-sided effusion. There is also subaxillary lymph node - large, hepatomegaly. Denied any hemoptysis. No nausea, no vomiting and no diarrhea. Denied any leg swelling or leg pain. PAST MEDICAL HISTORY: Hypertension and obesity. ALLERGIES: ALLERGIES TO PENICILLIN IN THE PAST BUT DID HAVE ROCEPHIN AND DID OKAY. SOCIAL HISTORY: Denied any alcohol use, socially drinks, denied any IVDA. FAMILY HISTORY: Positive for hypertension. MEDICATIONS: She is on Lovenox 120 mg subcutaneous twice a day, Protonix 40 mg daily, IV fluid normal saline 100 mL per hour. REVIEW OF SYSTEMS: No headache, had some rhinitis and cough a few days ago with the chest pain and shortness of breath. No nausea, no vomiting, no diarrhea. No leg pain or leg swelling. PHYSICAL EXAMINATION: GENERAL: Lying in the bed with a mild chest discomfort. VITAL SIGNS: Temperature is 98, heart rate 96, respiratory rate 18, blood pressure 125/62, pulse ox 96% on room air. HEENT: Moist mucous membrane. Crowded airway. Mallampati score is IV. NECK: Supple. No JVD. LUNGS: Has a fair airflow with rhonchi. HEART: S1 and S2. ABDOMEN: Soft, nontender, no organomegaly. EXTREMITIES: There is no edema. NEUROLOGICALLY: Awake, alert, and follows simple commands. LABORATORY DATA: Shows hemoglobin 8.1, hematocrit 30.9, WBC 14.7, platelet is 398, reticulocyte count is 2.10. INR 1.09. PTT is 29. Sodium 142, potassium 3.9, chloride 105, bicarbonate 26, BUN 9, creatinine 0.8, glucose 101, calcium 9.3. Iron 17, TIBC 368, AST 35, ALT 22, alkaline phos is 110. LDH 763. Troponin less than 0.01. Albumin is 4.0. IMPRESSION AND PLAN: Pulmonary embolism, anemia - probably iron-deficiency, obesity, sleep apnea syndrome, history of hypertension. I agree with the present management, continue anticoagulation, discontinue intravenous fluid, add gastric prophylaxis. We will add intravenous iron while waiting for the rest of the anemia workup. We will order venous Doppler of lower extremities, need workup for coagulopathy. Thank you and we will follow with you. Cyndy Bruner MD
[2017-03-25] MEDS: Pantoprazole 40 mg EC Tab PO SCH (05:34)
[2017-03-25 07:22] LABS: BASO # 0.01 K/mm3 (0.0-2.0); BASO % 0.1 % (0.0-3.0); EOS # 0.2 (0.0-0.7); EOS % 1.4 % (1.5-5.0); GRAN # 8.3 (1.4-6.5); GRAN % 69.5 % (50.0-68.0); LYMPH # 2.7 (1.2-3.4); LYMPH % 22.6 % (22.0-35.0); MEAN CELL VOLUME 65.1 fl (80.0-105.0); MEAN CORPUSCULAR HEMOGLOBIN 17.1 pg (25.0-35.0); MEAN CORPUSCULAR HGB CONC 26.3 g/dl (31.0-37.0); MEAN PLATELET VOLUME 9.3 fl (7.0-11.0); MONO # 0.8 (0.1-0.6); MONO % 6.4 % (1.0-6.0); RBC 4.21 10^6/uL (3.5-6.1); RED CELL DISTRIBUTION WIDTH 19.1 % (11.5-14.5)
[2017-03-25 07:41] LABS: INR 1.18 (0.93-1.08); PARTIAL THROMBOPLASTIN TIME 27.2 Seconds (25.1-36.5)
[2017-03-25 07:52] LABS: HEMOGLOBIN 7.2 g/dL (12.0-16.0)
[2017-03-25 07:56] LABS: ALB/GLOB RATIO 0.8 (1.1-1.8); ALBUMIN 3.4 g/dL (3.0-4.8); ALT/SGPT 31 U/L (7-56); AST/SGOT 19 U/L (14-36); BLOOD UREA NITROGEN 9 mg/dL (7-21); CALCIUM 9.1 mg/dL (8.4-10.5); GFR AFRICAN-AMERICAN > 60; GFR NON-AFRICAN AMERICAN > 60
--- NOTE | 2017-03-25 14:07 | CP.PCM.PN ---
<Smith Jang - Last Filed: 03/25/17 14:00> Subjective - Date & Time of Evaluation Date of Evaluation: 03/25/17 Time of Evaluation: 14:00 - Subjective Subjective: Medicine Progress Note Pt seen and examined at bedside. No acute overnight events. Pt states that she is still short of breath, but overall improved. Pt states that she has chest pain on deep expiration located on left side. Pt denied nausea, vomiting, diarrhea, abdominal pain, fever, chills, MARQUEZ, or dizziness. Objective - Vital Signs/Intake and Output Vital Signs (last 24 hours): Temp Pulse Resp BP Pulse Ox 98.3 F 90 18 99/49 L 100 03/25/17 06:00 03/25/17 06:00 03/25/17 06:00 03/25/17 06:00 03/25/17 10:00 Intake and Output: 03/25/17 03/25/17 06:59 18:59 Intake Total 720 Balance 720 - Medications Medications: Current Medications Benzonatate (Tessalon Perles) 100 mg PO TID MOHINDER Enoxaparin Sodium (Lovenox) 120 mg SC Q12H [facility] PRN Reason: Protocol Last Admin: 03/25/17 04:30 Dose: 120 mg Iron Sucrose 100 mg/ Sodium (Chloride) 105 mls @ 210 mls/hr IVPB DAILY [facility] Stop: 03/29/17 10:29 Pantoprazole Sodium (Protonix Ec Tab) 40 mg PO 0600 [facility] Last Admin: 03/25/17 05:34 Dose: 40 mg Polyethylene Glycol (Miralax) 17 gm PO DAILY MOHINDER - Labs Labs: 03/25/17 06:30 03/25/17 06:30 PT 13.0 SECONDS (9.4-12.5) H 03/25/17 06:30 INR 1.18 (0.93-1.08) H 03/25/17 06:30 APTT 27.2 Seconds (25.1-36.5) 03/25/17 06:30 - Constitutional Appears: No Acute Distress - Head Exam Head Exam: NORMAL INSPECTION - Eye Exam Eye Exam: Normal appearance - ENT Exam ENT Exam: Normal Exam - Neck Exam Neck Exam: Normal Inspection - Respiratory Exam Respiratory Exam: Chest Wall Tenderness (left), Clear to Ausculation Bilateral. absent: Rales, Rhonchi, Wheezes - Cardiovascular Exam Cardiovascular Exam: RRR, +S1, +S2. absent: Gallop, Rubs, Murmur - GI/Abdominal Exam GI & Abdominal Exam: Soft. absent: Distended, Guarding, Tenderness, Rebound - Extremities Exam Extremities Exam: Normal Inspection - Neurological Exam Neurological Exam: Alert, Awake, Oriented x3 - Psychiatric Exam Psychiatric exam: Normal Affect, Normal Mood - Skin Skin Exam: Dry, Intact, Normal Color, Warm Assessment and Plan - Assessment and Plan (Free Text) Assessment: 36yo female with history of hypertension presents c/o chest pain secondary to pulmonary embolism Plan: 1. Pulmonary embolism - CTA showed large pulmonary embolus seen in the left lower lobe pulmonary artery with associated infarct and small left-sided effusion - EKG showed sinus tachycardia at 108bpm with nonspecific T wave abnormality - CXR evealed poor inspiration with low lung volume, crowded bronchovascular markings and mild bibasilar atelectasis - Cont lovenox 1mg/kg SC q12h - Lower extremity duplex pending - Coagulopathy workup pending: factor V leidin, prothrombin, protein c, protein s, antiphospholipid - Procal pending, will consider abx if abnormal - Pulmonology consulted - Patient to be transitioned to oral anticoagulation 2. Iron Deficiency Anemia - Low iron and ferritin, elevated TIBC - Venofer daily - Miralax daily 3. Hypertension -Reportedly not on oral antihypertensives; will monitor at this time GI/DVT prophylaxis -protonix/lovenox Patient seen and case discussed/reviewed with attending, Dr. Aaliyah Jang, PGY1 <Aleisha Fischer - Last Filed: 03/25/17 18:17> Objective - Vital Signs/Intake and Output Vital Signs (last 24 hours): Temp Pulse Resp BP Pulse Ox 99.0 F 90 19 125/87 100 03/25/17 16:30 03/25/17 17:48 03/25/17 16:30 03/25/17 16:30 03/25/17 16:30 Intake and Output: 03/25/17 03/25/17 06:59 18:59 Intake Total 720 Balance 720 - Medications Medications: Current Medications Benzonatate (Tessalon Perles) 100 mg PO TID [facility] Last Admin: 03/25/17 17:30 Dose: 100 mg Enoxaparin Sodium (Lovenox) 120 mg SC Q12H [facility] PRN Reason: Protocol Last Admin: 03/25/17 16:27 Dose: 120 mg Iron Sucrose 100 mg/ Sodium (Chloride) 105 mls @ 210 mls/hr IVPB DAILY [facility] Stop: 03/29/17 10:29 Pantoprazole Sodium (Protonix Ec Tab) 40 mg PO 0600 [facility] Last Admin: 03/25/17 05:34 Dose: 40 mg Polyethylene Glycol (Miralax) 17 gm PO DAILY MOHINDER - Labs Labs: 03/25/17 06:30 03/25/17 06:30 PT 13.0 SECONDS (9.4-12.5) H 03/25/17 06:30 INR 1.18 (0.93-1.08) H 03/25/17 06:30 APTT 27.2 Seconds (25.1-36.5) 03/25/17 06:30 Attending/Attestation - Attestation I have personally seen and examined this patient.: Yes I have fully participated in the care of the patient.: Yes I have reviewed all pertinent clinical information, including history, physical exam and plan: Yes Notes (Text): I have seen and examined the patient at bedside. Agree with the above note with the following additions/ exceptions: Briefly this is 36 year old female with history of uncontrolled hypertension non complaint with medications, chronic anemia, morbid obesity (BMI 46) who came for evaluation of dry cough, chest pain and shortness of breath. Patient was seen in ED about a week ago and was told that she needed to get blood transfusion. At that time, patient decided to leave AMA because she was feeling better. She was admitted yesterday for worsening of symptoms. Patient was found to have large PE in LLL with associated infarct and small effusion. LE duplex and hypercoagulable work up ordered and pending at this time. Patient states that she has been sitting a lot due to recent illness. Denies smoking history, otc drug use including OCPs, recent surgery, previous thromboembolism or FH of thromboembolism. Continue lovenox. Will start NOAC tomorrow if it is covered under her insurance. Her procal is low. Will not give any antibiotics at this time. Pulmonary consult appreciated. She has severe iron deficiency. Will continue IV iron for now. Patient is hemodynamically stable and therefore PRBC transfusion is not indicated at this time. Life style modification recommended. Upon discharge patient will follow up with Dr Newton. Dr Aleisha Fischer
[2017-03-25 14:33] LABS: PH,URINE 6.5 (4.7-8.0); URINE BILIRUBIN NEGATIVE (NEGATIVE); URINE BLOOD NEGATIVE (NEGATIVE); URINE GLUCOSE (UA) NEGATIVE (NEGATIVE); URINE LEUKOCYTE ESTERASE NEGATIVE Leu/uL (NEGATIVE); URINE NITRATE NEGATIVE (NEGATIVE); URINE PROTEIN NEGATIVE mg/dL (<30 mg/dL); URINE UROBILINOGEN 0.2 E.U./dL (<1 E.U./dL)
[2017-03-25 14:46] LABS: URINE APPEARANCE CLEAR (CLEAR); URINE COLOR YELLOW (YELLOW)
[2017-03-25 14:48] LABS: BARBITURATES, UR NEGATIVE (NEGATIVE); BENZODIAZEPINES, UR NEGATIVE (NEGATIVE); OPIATES, UR NEGATIVE (NEGATIVE); PHENCYCLIDINE, UR NEGATIVE (NEGATIVE)
[2017-03-25 15:49] LABS: BARBITURATES, UR NEGATIVE (NEGATIVE); BENZODIAZEPINES, UR NEGATIVE (NEGATIVE); OPIATES, UR NEGATIVE (NEGATIVE); PHENCYCLIDINE, UR NEGATIVE (NEGATIVE)
--- NOTE | 2017-03-26 00:04 | PN ---
DATE: 03/25/2017 PULMONARY PROGRESS NOTE REFERRING PHYSICIAN: . SUBJECTIVE: She is lying in the bed, feels better, decreased pleuritic pain. No cough. No nausea. No vomiting. No diarrhea. No leg pain or leg swelling. OBJECTIVE: GENERAL: In no acute distress. VITAL SIGNS: Temperature is 99, heart rate 97; respiratory rate is 18, blood pressure 125/87, pulse ox 100% on 2 L nasal cannula. HEENT: Moist mucous membranes. Crowded airway. Mallampati score is IV. NECK: Supple. No JVD. LUNGS: Has a fair airflow with rhonchi. HEART: S1 and S2. ABDOMEN: Soft, nontender, no organomegaly. EXTREMITIES: No edema. NEUROLOGIC: Awake and alert. Follows simple command. MEDICATIONS: She is on IV iron, also on Lovenox 120 mg daily, MiraLax 17 g daily, Protonix 40 mg daily, Tessalon Perles 100 mg three times a day. LABORATORY DATA: Shows hemoglobin is 7.2, hematocrit 27.4, WBC 12.0, platelet count is 261, reticulocyte count is 2.10. INR 1.18, PTT 27. Sodium 139, potassium 4.6, chloride 104, bicarbonate 24, BUN 9, creatinine 0.7, glucose 94, calcium is 9.1, iron is 17, ferritin is 3.9. AST 19, ALT 31, alk phos is 97, troponin 0.01, and albumin is 3.4. Procalcitonin is 0.05. Microbiology: Blood culture is negative, no growth. IMPRESSION AND PLAN: Pulmonary embolism, anemia, has a heavy periods from last few years, never took iron or supplement multivitamin, obesity, may have sleep apnea syndrome. Continue IV iron on a daily basis. Keep head at 45 degree. Watch for bleeding. Follow up H and H. Continue anticoagulation. Thank you and we will follow with you. Cyndy Bruner MD
[2017-03-26] MEDS: Enoxaparin 120 mg Syringe SC SCH ×2 (04:30→16:38)
[2017-03-26] MEDS: Pantoprazole 40 mg EC Tab PO SCH (05:31)
[2017-03-26 06:21] LABS: BASO # 0.01 K/mm3 (0.0-2.0); BASO % 0.1 % (0.0-3.0); EOS # 0.1 (0.0-0.7); EOS % 1.1 % (1.5-5.0); LYMPH # 2.7 (1.2-3.4); MONO # 0.8 (0.1-0.6)
[2017-03-26 06:38] LABS: GRAN # 8.22 (1.4-6.5); GRAN % 69.5 % (50.0-68.0); LYMPH % 22.6 % (22.0-35.0); MEAN CELL VOLUME 65.2 fl (80.0-105.0); MEAN CORPUSCULAR HEMOGLOBIN 17.1 pg (25.0-35.0); MEAN CORPUSCULAR HGB CONC 26.3 g/dl (31.0-37.0); MEAN PLATELET VOLUME 9.1 fl (7.0-11.0); MONO % 6.7 % (1.0-6.0); RBC 4.2 10^6/uL (3.5-6.1); RED CELL DISTRIBUTION WIDTH 19.3 % (11.5-14.5); WHITE BLOOD COUNT 11.8 10^3/ul (4.5-11.0)
[2017-03-26 06:42] LABS: HEMOGLOBIN 7.2 g/dL (12.0-16.0)
[2017-03-26 06:46] LABS: INR 1.2 (0.93-1.08); PARTIAL THROMBOPLASTIN TIME 25.6 Seconds (25.1-36.5); PROTHROMBIN TIME 13.3 SECONDS (9.4-12.5)
[2017-03-26 07:23] LABS: ALB/GLOB RATIO 0.8 (1.1-1.8); ALBUMIN 3.7 g/dL (3.0-4.8); ALT/SGPT 20 U/L (7-56); AST/SGOT 40 U/L (14-36); BLOOD UREA NITROGEN 8 mg/dL (7-21); CALCIUM 9.1 mg/dL (8.4-10.5); GFR AFRICAN-AMERICAN > 60; GFR NON-AFRICAN AMERICAN > 60
[2017-03-26] MEDS: POLYETHYLENE GLYCOL 3350 17 GM/Dose PACKET PO SCH (09:35)
[2017-03-26] MEDS ORDERED: Iron Sucrose 100 mg/5 ml Inj IVP SCH (10:00)
--- NOTE | 2017-03-26 12:29 | CP.PCM.PN ---
<Smith Jang - Last Filed: 03/26/17 12:26> Subjective - Date & Time of Evaluation Date of Evaluation: 03/26/17 Time of Evaluation: 12:26 - Subjective Subjective: Medicine Progress Note Pt seen and examined at bedside. No acute overnight events. Pt states that SOB is improved, but still has minor left sided CP with deep inspiration. Pt denies nausea, vomiting, diarrhea, abdominal pain, fever, chills, MARQUEZ, or dizziness. Objective - Vital Signs/Intake and Output Vital Signs (last 24 hours): Temp Pulse Resp BP Pulse Ox 99.0 F 90 19 125/87 100 03/25/17 16:30 03/25/17 17:48 03/25/17 16:30 03/25/17 16:30 03/25/17 16:30 Intake and Output: 03/26/17 03/26/17 06:59 18:59 Intake Total 540 Balance 540 - Medications Medications: Current Medications Benzonatate (Tessalon Perles) 100 mg PO TID [facility] Last Admin: 03/26/17 09:35 Dose: 100 mg Enoxaparin Sodium (Lovenox) 120 mg SC Q12H [facility] PRN Reason: Protocol Last Admin: 03/26/17 04:30 Dose: 120 mg Iron Sucrose 100 mg/ Sodium (Chloride) 105 mls @ 210 mls/hr IVPB DAILY [facility] Stop: 03/29/17 10:29 Last Admin: 03/26/17 09:34 Dose: 210 mls/hr Pantoprazole Sodium (Protonix Ec Tab) 40 mg PO 0600 [facility] Last Admin: 03/26/17 05:31 Dose: 40 mg Polyethylene Glycol (Miralax) 17 gm PO DAILY [facility] Last Admin: 03/26/17 09:35 Dose: 17 gm - Labs Labs: 03/26/17 05:35 03/26/17 05:35 PT 13.3 SECONDS (9.4-12.5) H 03/26/17 05:35 INR 1.20 (0.93-1.08) H 03/26/17 05:35 APTT 25.6 Seconds (25.1-36.5) 03/26/17 05:35 - Constitutional Appears: No Acute Distress - Head Exam Head Exam: NORMAL INSPECTION - Eye Exam Eye Exam: Normal appearance - ENT Exam ENT Exam: Normal Exam - Respiratory Exam Respiratory Exam: Clear to Ausculation Bilateral. absent: Accessory Muscle Use , Rales, Rhonchi, Wheezes, Respiratory Distress - Cardiovascular Exam Cardiovascular Exam: RRR, +S1, +S2. absent: Gallop, Rubs, Murmur - GI/Abdominal Exam GI & Abdominal Exam: Soft. absent: Distended, Guarding, Tenderness, Rebound - Extremities Exam Extremities Exam: Normal Inspection - Back Exam Back Exam: NORMAL INSPECTION - Neurological Exam Neurological Exam: Alert, Awake, Oriented x3 - Psychiatric Exam Psychiatric exam: Normal Affect, Normal Mood - Skin Skin Exam: Dry, Intact, Normal Color, Warm Assessment and Plan - Assessment and Plan (Free Text) Assessment: 36yo female with history of hypertension presents c/o chest pain secondary to pulmonary embolism Plan: 1. Pulmonary embolism - CTA showed large pulmonary embolus seen in the left lower lobe pulmonary artery with associated infarct and small left-sided effusion - EKG showed sinus tachycardia at 108bpm with nonspecific T wave abnormality - CXR evealed poor inspiration with low lung volume, crowded bronchovascular markings and mild bibasilar atelectasis - Lower extremity duplex prelim read negative for DVT, f/u official read - Echo ordered - Cont lovenox 120 mg SC Q12h - Coagulopathy workup pending: factor V leidin, prothrombin, protein c, protein s, antiphospholipid - Procal WNL, abx not needed at this time - Pulmonology consulted - Depending on insurance coverage, will be transitioned to oral AC 2. Iron Deficiency Anemia - Low iron and ferritin, elevated TIBC - Venofer daily - Miralax daily - Hematology consulted 3. Hypertension -Reportedly not on oral antihypertensives; will monitor at this time GI/DVT prophylaxis -protonix/lovenox Patient seen and case discussed/reviewed with attending, Dr. Aaliyah Jang, PGY1 <Aleisha Fischer - Last Filed: 03/26/17 14:58> Objective - Vital Signs/Intake and Output Vital Signs (last 24 hours): Temp Pulse Resp BP Pulse Ox 99.0 F 90 19 125/87 100 03/25/17 16:30 03/25/17 17:48 03/25/17 16:30 03/25/17 16:30 03/25/17 16:30 Intake and Output: 03/26/17 03/26/17 06:59 18:59 Intake Total 540 Balance 540 - Medications Medications: Current Medications Benzonatate (Tessalon Perles) 100 mg PO TID [facility] Last Admin: 03/26/17 13:16 Dose: 100 mg Cyanocobalamin (Vitamin B12 1000 Mcg/Ml Inj) 1,000 mcg IM DAILY [facility] Stop: 03/30/17 13:42 Enoxaparin Sodium (Lovenox) 120 mg SC Q12H [facility] PRN Reason: Protocol Last Admin: 03/26/17 04:30 Dose: 120 mg Iron Sucrose 100 mg/ Sodium (Chloride) 105 mls @ 210 mls/hr IVPB DAILY [facility] Stop: 03/29/17 10:29 Last Admin: 03/26/17 09:34 Dose: 210 mls/hr Pantoprazole Sodium (Protonix Ec Tab) 40 mg PO 0600 [facility] Last Admin: 03/26/17 05:31 Dose: 40 mg Polyethylene Glycol (Miralax) 17 gm PO DAILY [facility] Last Admin: 03/26/17 09:35 Dose: 17 gm - Labs Labs: 03/26/17 05:35 03/26/17 05:35 PT 13.3 SECONDS (9.4-12.5) H 03/26/17 05:35 INR 1.20 (0.93-1.08) H 03/26/17 05:35 APTT 25.6 Seconds (25.1-36.5) 03/26/17 05:35 Attending/Attestation - Attestation I have personally seen and examined this patient.: Yes I have fully participated in the care of the patient.: Yes I have reviewed all pertinent clinical information, including history, physical exam and plan: Yes Notes (Text): I have seen and examined the patient at bedside. Agree with the above note with the following additions/ exceptions: Briefly this is 36 year old female with history of uncontrolled hypertension non complaint with medications, chronic anemia, morbid obesity (BMI 46) who came for evaluation of dry cough, chest pain and shortness of breath. Patient was seen in ED about a week ago and was told that she needed to get blood transfusion. At that time, patient decided to leave AMA because she was feeling better. She was admitted 2 days ago for worsening of symptoms. Patient was found to have large PE in LLL with associated infarct and small effusion. LE duplex and hypercoagulable work up ordered and pending at this time. Patient states that she has been sitting a lot due to recent illness. Denies smoking history, otc drug use including OCPs, recent surgery, previous thromboembolism or FH of thromboembolism. Continue lovenox. Plan on starting NOAC . Her LE duplex and echo is still pending. Her procal is low. Will not give any antibiotics at this time. Pulmonary consult appreciated. She has severe iron deficiency. Will continue IV iron for now. Patient is hemodynamically stable. Patient is refusing blood transfusion. Life style modification recommended. Upon discharge patient will follow up with Dr Newton. Dr Aleisha Fischer
--- NOTE | 2017-03-26 18:36 | US ---
HISTORY: Leg pain and swelling. Evaluate for DVT PHYSICIAN(S): Laurent Abrams MD. TECHNIQUE: Duplex sonography and color-flow Doppler with graded compression were used to evaluate the deep venous systems of both lower extremities. The exam is limited by body habitus and edema. FINDINGS: The visualized deep venous systems of both lower extremities are sonographically normal and compressible. Normal wave forms and augmentation are seen. There is no sonographic evidence for deep venous thrombosis in the visualized segments of both lower extremities. IMPRESSION: No sonographic evidence for deep venous thrombosis in the visualized segments of both lower extremities. Limited study.
--- NOTE | 2017-03-26 18:55 | CT ---
PROCEDURE: CT Chest with contrast (Pulmonary Angiogram) HISTORY: Shortness of breath COMPARISON: Comparison made with chest radiograph obtained earlier same day TECHNIQUE: Axial computed tomography images were obtained of the chest in the pulmonary arterial phase of enhancement. Coronal and sagittal reformatted images were created and reviewed. . Note that the 90 cc of Omnipaque 350 contrast material injected however due to malfunction of of the intravenous catheter the at dose of contrast material was injected into the subcutaneous tissues of the left upper extremity as per technologist notation. No circulating contrast material is seen within the intravascular compartment on this exam Radiation dose: Total exam DLP = 539.87 mGy-cm. This CT exam was performed using one or more of the following dose reduction techniques: Automated exposure control, adjustment of the mA and/or kV according to patient size, and/or use of iterative reconstruction technique. Of this report for additional details. FINDINGS: PULMONARY ARTERIES: Pulmonary arteries cannot be adequately evaluated due to the lack of circulating intravenous contrast material. Note that the contrast injection extravasated via AORTA: No acute findings. No thoracic aortic aneurysm. LUNGS: Consolidation changes seen in the left posterior sulcus which is associate with a small left-sided effusion. PLEURAL SPACES: Small left-sided effusion as above. No evidence of pneumothorax HEART: Heart is enlarged. No significant pericardial effusion. . LYMPH NODES: Multiple mildly enlarged bilateral axillary lymph nodes are present -nonspecific. No significant mediastinal adenopathy. Evaluation for hilar adenopathy is limited due to the lack of circulating intravenous contrast material. Central airways are midline and patent. No central endobronchial lesions. BONES, CHEST WALL: Unremarkable. No fracture or destructive lesion OTHER FINDINGS: Spleen appears mildly enlarged measuring nearly 13 cm in greatest AP dimension. The liver completely imaged along its inferior margin though does appear mildly enlarged. IMPRESSION: Limited study due to intravenous catheter malfunction with no circulating intravenous contrast material visualized. Please see technique section this report for additional details. The pulmonary arteries cannot be properly evaluated and the possibility of a pulmonary embolus cannot be excluded. . Left lower lobe consolidation and small effusion. Multiple mildly enlarged bilateral axillary lymph nodes Cardiomegaly. Mild hepatosplenomegaly. Note these findings were discussed with Dr. Bass at approximately 01:30 p.m. with written down and read back verification.
--- NOTE | 2017-03-26 19:38 | CARD ---
APPROVED REPORT EXAM: Two-dimensional and M-mode echocardiogram with Doppler and color Doppler. INDICATION Pulmonary Embolism 2D DIMENSIONS Left Atrium (2D)4.3 (1.6-4.0cm)IVSd1.3 (0.7-1.1cm) LVDd4.4 (3.9-5.9cm)PWd1.3 (0.7-1.1cm) LVDs3.0 (2.5-4.0cm)FS (%) 30.8 % LVEF (%)58.5 (>50%) M-Mode DIMENSIONS Aortic Root3.30 (2.2-3.7cm)Aortic Cusp Exc.1.70 (1.5-2.0cm) Aortic Valve AoV Peak Ucxekjwo565.0cm/Steph Peak GR.12mmHg Mitral Valve MV E Meaihzyn471.0cm/sMV A Hhckkqng79.9cm/sE/A ratio1.3 TDI Lateral E' Peak V15.70cm/sMedial E' Peak V11.90cm/sE/Lateral E'7.0 E/Medial E'9.2 Pulmonary Valve PV Peak Wymjogup123.0cm/sPV Peak Grad.4mmHg Tricuspid Valve TR Peak Ovhszbev150zt/sRAP [id number] Peak Gr.48mmHg [id number] LEFT VENTRICLE The left ventricle is normal size. There is normal left ventricular wall thickness. The left ventricular function is normal.EF-55% There is normal LV segmental wall motion. The left ventricular diastolic function is normal. No left ventricle thrombus noted on this study. There is no ventricular septal defect visualized. There is no left ventricular aneurysm. There is no mass noted in the left ventricle. RIGHT VENTRICLE The right ventricle is borderline dilated. The right ventricle is borderline hypertrophied. Systolic function is borderline reduced. ATRIA The left atrium is mildly dilated. The right atrium is borderline dilated. 1.9 cm/3.5 cm Mobile Mass noted in RA Possible Atrial Myxoma but can not R/O thrombus, ,Though Ledss likely The interatrial septum is intact with no evidence for an atrial septal defect. AORTIC VALVE The aortic valve is thickened but opens well. There is trace aortic regurgitation. There is no aortic valvular stenosis. There is no aortic valvular vegetation. MITRAL VALVE The mitral valve is thickened but opens well. Mitral regurgitation is trace. There is no mitral valve stenosis. There is no evidence of mitral valve prolapse. TRICUSPID VALVE The tricuspid valve leaflets are thickened , but open well. There is mild to moderate tricuspid regurgitation.RVSP-58 mmof Hg There is no tricuspid valve stenosis. There is no tricuspid valve prolapse or vegetation. PULMONIC VALVE The pulmonary valve is normal in structure. There is no pulmonic valvular regurgitation. There is no pulmonic valvular stenosis. GREAT VESSELS The aortic root is normal in size. The ascending aorta is normal in size. The pulmonary artery is normal. The IVC is normal in size and collapses >50% with inspiration. PERICARDIAL EFFUSION There is no pleural effusion. There is no pericardial effusion. <Conclusion> The left ventricle is normal size. There is normal left ventricular wall thickness. The left ventricular function is normal.EF-55% The left atrium is mildly dilated. The right atrium is borderline dilated. 1.9 cm/3.5 cm Mobile Mass noted in RA Possible Atrial Myxoma but can not R/O thrombus, ,Though Ledss likely There is trace aortic regurgitation. Mitral regurgitation is trace. There is mild to moderate tricuspid regurgitation.RVSP-58 mmof Hg The IVC is normal in size and collapses >50% with inspiration. There is no pericardial effusion. May Consider ERVIN or Cardiac MRI.
--- NOTE | 2017-03-26 20:39 | PN ---
PULMONARY PROGRESS NOTE DATE: 03/26/2017 REFERRING PHYSICIAN: Aleisha Fischer MD SUBJECTIVE: She is sitting up in bed. Night was unremarkable, feels better. No vaginal or rectal bleed reported. No leg pain or leg swelling. OBJECTIVE GENERAL: In no acute distress. VITAL SIGNS: Temperature is 98, heart rate is 87, respiratory rate is 18 to 20, blood pressure is 109/61, and pulse oximetry is 97%. HEENT: Moist mucous membranes. Crowded airway. Mallampati score is IV. NECK: Supple. No JVD. LUNGS: Have a fair airflow with rhonchi. HEART: S1 and S2. ABDOMEN: Soft and nontender. No organomegaly. EXTREMITIES: No edema. NEUROLOGIC: Awake, alert and follows simple commands. MEDICATIONS: She is on iron IV on a daily basis, Lovenox 120 mg subcu q.12 hours, MiraLax 17 g daily, Protonix 40 mg daily, Tessalon Perles 3 times a day, and vitamin B12 1000 mcg IM daily. LABORATORY DATA: Shows hemoglobin 7.2, hematocrit 27.4, WBC 11.8, and platelet count is 374. INR 1.2, PTT is 26. Sodium 141, potassium 3.9, chloride 105, bicarbonate 27, BUN 8, creatinine 0.7, glucose 90, and calcium is 9.1. AST 40, ALT 20, alkaline phosphatase is 85, and albumin is 3.7. Procalcitonin less than 0.05. Microbiology, blood culture and urine culture, there is no growth. Has a venous Doppler, echocardiogram done, both are pending. IMPRESSION AND PLAN: Pulmonary embolism, anemia, history of heavy periods, and obesity. Pulmonary point of view, doing well. Continue anticoagulation. Continue IV iron. So far, she is maintaining her H and H. Follow up the H and H on a daily basis. Thank you and we will follow with you. Cyndy Bruner MD
--- NOTE | 2017-03-26 22:45 | CON ---
DATE: 03/26/2017 REASON FOR CONSULTATION: PE as well as severe anemia. HISTORY OF PRESENT ILLNESS: The patient is a 36-year-old female with past medical history significant for hypertension, who presented to the Emergency Room with complaints of chest pain. She reports that she had shortness of breath as well as cough approximately a week prior to presentation. At which point, she was treating herself with over the counter medications and there was no relief. She also was admitted with similar symptoms approximately week prior to this admission, at which point, she signed out AMA. She did have a CT done with the protocol in the Emergency Room and was notable for pulmonary embolus. She also is noted to have a sever anemia. She denies any active bleeding. She is not noted any menorrhagia and metrorrhagia. Denies any history of fibroid. Denies any gastric procedures in the past and has not had any prior anemia either. PAST MEDICAL HISTORY: Only significant for hypertension. PAST SURGICAL HISTORY: . ALLERGIES: NO KNOWN ALLERGIES TO ANY MEDICATIONS. SOCIAL HISTORY: Negative. She is not smoker. No alcohol use. No drug use. FAMILY HISTORY: Mother has hypertension. Father unknown. No history of blood clot in the family. No history of cancers in the family. REVIEW OF SYSTEMS: As per the HPI. PHYSICAL EXAMINATION: VITAL SIGNS: Reveal a temperature of 99.0, pulse of 97, respiratory rate of 19, and blood pressure of 125/87. GENERAL: The patient is a young, obese female, lying in bed, in no acute distress. HEAD AND NECK: Normocephalic and atraumatic. Eyes; pupils are equal, round, reactive to light and accommodation. Extraocular muscles are intact. There is pallor. No icterus is noted. Neck is supple with no adenopathy, no JVD, no thyromegaly. LUNGS: Clear to auscultation bilaterally with no rales or rhonchi. CARDIOVASCULAR: S1 and S2 is heard. The patient is tachycardic. ABDOMEN: Positive bowel sounds, soft, nontender, and nondistended. No organomegaly is palpated. EXTREMITIES: Bilateral lower extremity edema. LABORATORY DATA: Her labs reveals a white count of 11.8, hemoglobin of 7.2, hematocrit of 27.4, MCV of 65.2, RDW of 19.3 and a platelet count of 374. Her electrolytes are within normal limits except for low creatinine of 3.9 and B12 of 262. Coag are within normal limits. U-tox is within normal limits. CT of chest thus reveals a large left-sided pulmonary embolus. ASSESSMENT AND PLAN: A young female with unprovoked pulmonary embolism only risk factor is obesity. Discussed with the patient that she needs a full hypercoagulable workup. She is currently in the process of having that done, also severe iron-deficiency anemia without any active bleeding. We will need a full workup for that as well including gastrointestinal workup in the near future. Check ultrasound of the abdomen and pelvis to rule out any fibroid uterus. There is mild axillary nodule enlargement, but it does not seem pathological. Check ESR, LDH, doubt this is lymphoma. Thank you for the consult. We will follow. Gabbi Pal MD
[2017-03-27 04:50] LABS: B2 GLYCOPROTEIN I AB(IGA) <9 SAU (<=20); B2 GLYCOPROTEIN I AB(IGG) <9 SGU (<=20); B2 GLYCOPROTEIN I AB(IGM) 10 SMU (<=20)
[2017-03-27 05:10] LABS: PHOSPHATIDYLSERINE AB IGA <20 U/mL (<20); PHOSPHATIDYLSERINE AB IGG <10 U/mL (<10); PHOSPHATIDYLSERINE AB IGM <25 U/mL (<25)
[2017-03-27] MEDS: Pantoprazole 40 mg EC Tab PO SCH (05:28)
[2017-03-27] MEDS: Enoxaparin 120 mg Syringe SC SCH (05:37)
[2017-03-27 06:31] LABS: BASO # 0.02 K/mm3 (0.0-2.0); BASO % 0.2 % (0.0-3.0); EOS # 0.2 (0.0-0.7); EOS % 1.4 % (1.5-5.0); GRAN # 9.42 (1.4-6.5); LYMPH # 2.4 (1.2-3.4); LYMPH % 18.9 % (22.0-35.0); MEAN CELL VOLUME 65.6 fl (80.0-105.0); MEAN CORPUSCULAR HEMOGLOBIN 17.1 pg (25.0-35.0); MEAN PLATELET VOLUME 9.2 fl (7.0-11.0); MONO # 0.7 (0.1-0.6); MONO % 5.5 % (1.0-6.0); RBC 4.22 10^6/uL (3.5-6.1); RED CELL DISTRIBUTION WIDTH 19.5 % (11.5-14.5); WHITE BLOOD COUNT 12.7 10^3/ul (4.5-11.0)
[2017-03-27 06:46] LABS: ALB/GLOB RATIO 0.8 (1.1-1.8); ALBUMIN 3.6 g/dL (3.0-4.8); ALT/SGPT 20 U/L (7-56); AST/SGOT 27 U/L (14-36); BLOOD UREA NITROGEN 6 mg/dL (7-21); GFR AFRICAN-AMERICAN > 60; GFR NON-AFRICAN AMERICAN > 60
[2017-03-27 07:18] LABS: PARTIAL THROMBOPLASTIN TIME 33.3 Seconds (25.1-36.5)
[2017-03-27 07:34] LABS: INR 1.25 (0.93-1.08); PROTHROMBIN TIME 13.8 SECONDS (9.4-12.5)
[2017-03-27 07:36] LABS: HEMOGLOBIN 7.2 g/dL (12.0-16.0)
[2017-03-27] MEDS: POLYETHYLENE GLYCOL 3350 17 GM/Dose PACKET PO SCH (09:56)
--- NOTE | 2017-03-27 13:31 | CP.PCM.PN ---
<Smith Jang - Last Filed: 03/27/17 13:27> Subjective - Date & Time of Evaluation Date of Evaluation: 03/27/17 Time of Evaluation: 13:28 - Subjective Subjective: Medicine Progress Note Pt seen and examined at bedside. Pt had 3.41 second pause overnight, but asymptomatic. Cardiology was consulted. Pt states left side pleuritic CP and SOB is improved. Pt denied abdominal pain, nausea, vomiting, fever, chills, MARQUEZ or dizziness. Objective - Vital Signs/Intake and Output Vital Signs (last 24 hours): Temp Pulse Resp BP Pulse Ox 97.7 F 109 H 20 150/66 100 03/27/17 06:00 03/27/17 10:00 03/27/17 06:00 03/27/17 06:00 03/27/17 06:00 Intake and Output: 03/27/17 03/27/17 06:59 18:59 Intake Total 1000 Output Total 0 Balance 1000 - Medications Medications: Current Medications Apixaban (Eliquis) 10 mg PO BID [facility] PRN Reason: Protocol Benzonatate (Tessalon Perles) 100 mg PO TID [facility] Last Admin: 03/27/17 09:57 Dose: 100 mg Cyanocobalamin (Vitamin B12 1000 Mcg/Ml Inj) 1,000 mcg IM DAILY [facility] Stop: 03/30/17 13:42 Last Admin: 03/27/17 09:56 Dose: 1,000 mcg Enoxaparin Sodium (Lovenox) 120 mg SC Q12H [facility] PRN Reason: Protocol Stop: 03/28/17 00:01 Last Admin: 03/27/17 05:37 Dose: 120 mg Iron Sucrose 100 mg/ Sodium (Chloride) 105 mls @ 210 mls/hr IVPB DAILY [facility] Stop: 03/29/17 10:29 Last Admin: 03/27/17 10:25 Dose: 210 mls/hr Pantoprazole Sodium (Protonix Ec Tab) 40 mg PO 0600 [facility] Last Admin: 03/27/17 05:28 Dose: 40 mg Polyethylene Glycol (Miralax) 17 gm PO DAILY [facility] Last Admin: 03/27/17 09:56 Dose: 17 gm - Labs Labs: 03/27/17 06:10 03/27/17 06:10 PT 13.8 SECONDS (9.4-12.5) H 03/27/17 06:10 INR 1.25 (0.93-1.08) H 03/27/17 06:10 APTT 33.3 Seconds (25.1-36.5) 03/27/17 06:10 - Constitutional Appears: No Acute Distress - Head Exam Head Exam: NORMAL INSPECTION - Eye Exam Eye Exam: Normal appearance Pupil Exam: NORMAL ACCOMODATION - ENT Exam ENT Exam: Normal Exam - Respiratory Exam Respiratory Exam: Clear to Ausculation Bilateral. absent: Rales, Rhonchi, Wheezes, Respiratory Distress - Cardiovascular Exam Cardiovascular Exam: RRR, +S1, +S2. absent: Gallop, Rubs, Murmur - GI/Abdominal Exam GI & Abdominal Exam: Soft. absent: Distended, Guarding, Tenderness, Rebound - Extremities Exam Extremities Exam: Normal Inspection - Back Exam Back Exam: NORMAL INSPECTION - Neurological Exam Neurological Exam: Alert, Awake, Oriented x3 - Psychiatric Exam Psychiatric exam: Normal Affect, Normal Mood - Skin Skin Exam: Dry, Intact, Normal Color, Warm Assessment and Plan - Assessment and Plan (Free Text) Assessment: 36yo female with history of hypertension presents c/o chest pain secondary to pulmonary embolism. Found to have a 3.41 second HR pause overnight. 1 Plan: 1. Pulmonary embolism - CTA showed large pulmonary embolus seen in the left lower lobe pulmonary artery with associated infarct and small left-sided effusion - EKG showed sinus tachycardia at 108bpm with nonspecific T wave abnormality - CXR revealed poor inspiration with low lung volume, crowded bronchovascular markings and mild bibasilar atelectasis - Lower extremity duplex negative for DVT - Echo showed LVEF 58.5% and thrombus found in right atrium - Cont lovenox 120 mg SC Q12h Will transition to Eliquis - Coagulopathy workup pending: factor V leidin, prothrombin, protein c, protein s, antiphospholipid - Procal WNL, abx not needed at this time - Pulmonology consulted 2. Iron Deficiency Anemia - Low iron and ferritin, elevated TIBC - Venofer daily - Miralax daily - Hematology consulted, recs appreciated 3. Hypertension -Reportedly not on oral antihypertensives; will monitor at this time 4. Abnormal pause on EKG - Cardio consulted GI/DVT prophylaxis -protonix/lovenox Patient seen and case discussed/reviewed with attending, Dr. Ronn Jang, PGY <Cyndy Brody - Last Filed: 03/27/17 14:59> Objective - Vital Signs/Intake and Output Vital Signs (last 24 hours): Temp Pulse Resp BP Pulse Ox 98.4 F 94 H 20 134/82 100 03/27/17 12:00 03/27/17 12:00 03/27/17 12:00 03/27/17 12:00 03/27/17 06:00 Intake and Output: 03/27/17 03/27/17 06:59 18:59 Intake Total 1000 Output Total 0 Balance 1000 - Medications Medications: Current Medications Apixaban (Eliquis) 10 mg PO BID [facility] PRN Reason: Protocol Benzonatate (Tessalon Perles) 200 mg PO TID [facility] Last Admin: 03/27/17 13:53 Dose: 200 mg Cyanocobalamin (Vitamin B12 1000 Mcg/Ml Inj) 1,000 mcg IM DAILY [facility] Stop: 03/30/17 13:42 Last Admin: 03/27/17 09:56 Dose: 1,000 mcg Enoxaparin Sodium (Lovenox) 120 mg SC Q12H [facility] PRN Reason: Protocol Stop: 03/28/17 00:01 Last Admin: 03/27/17 05:37 Dose: 120 mg Iron Sucrose 100 mg/ Sodium (Chloride) 105 mls @ 210 mls/hr IVPB DAILY [facility] Stop: 03/29/17 10:29 Last Admin: 03/27/17 10:25 Dose: 210 mls/hr Pantoprazole Sodium (Protonix Ec Tab) 40 mg PO 0600 [facility] Last Admin: 03/27/17 05:28 Dose: 40 mg Polyethylene Glycol (Miralax) 17 gm PO DAILY [facility] Last Admin: 03/27/17 09:56 Dose: 17 gm - Labs Labs: 03/27/17 06:10 03/27/17 06:10 PT 13.8 SECONDS (9.4-12.5) H 03/27/17 06:10 INR 1.25 (0.93-1.08) H 03/27/17 06:10 APTT 33.3 Seconds (25.1-36.5) 03/27/17 06:10 Attending/Attestation - Attestation I have personally seen and examined this patient.: Yes I have fully participated in the care of the patient.: Yes I have reviewed all pertinent clinical information, including history, physical exam and plan: Yes Notes (Text): 03/27/17 14:51 Patient was seen and examined with medical record librarian. Agreed with assessment and plan. 36 year old female with PMH of morbid obesity (BMI 46), hypertension non complaint with medications, chronic anemia, was admitted with atypical chest pain and shortness of breath. Patient was found to have large Pulmonary embolism in LLL with associated infarct and small effusion. Hemoglobin is stable while on anticoagulation.Patient has microcytic hypochromic anemia due to iron deficiency.Patient denies any GI blood lose , ho H/O melena or bleeding per rectum The risk and benefit of warfarin and new novel anticoagulant was discussed in detail.Patient has decided o opt for Apixiban. Patient had sinus pause last night while on telemetry, was evaluated by cardiology, will monitor in telemetry. Life style modification recommended. Upon discharge patient will follow up with Dr Newton. Management plan was discussed in detail. Education was provided.
[2017-03-27 21:11] LABS: CARDIOLIPIN AB (IGA) <11 APL (<=11); CARDIOLIPIN AB (IGG) <14 GPL (<=14); CARDIOLIPIN AB (IGM) <12 MPL (<=12)
--- NOTE | 2017-03-27 23:04 | PN ---
DATE: 03/27/2017 SUBJECTIVE: The patient is sitting up in chair. Denies any further shortness of breath. No active bleeding. She overall feels much better, but she is currently being held in a hospital as her heart rate dropped overnight. She denies any other complaints. PHYSICAL EXAMINATION VITAL SIGNS: Stable. Temperature is 98, heart rate of 87, respiratory rate of 18 to 20, blood pressure of 109/61, pulse oximetry is 97% on room air. HEENT: Head and neck; normocephalic and atraumatic. Eyes; pupils are round and reactive to light and accommodation. Extraocular muscles are intact. NECK: Supple with no adenopathy. No JVD. No thyromegaly. LUNGS: Clear to auscultation bilaterally with no rales or rhonchi. CARDIOVASCULAR: S1 and S2 are heard. ABDOMEN: Positive bowel sounds. Soft. Nontender and nondistended. No organomegaly is palpated. EXTREMITIES: There is mild pitting edema. NEUROLOGICAL: The patient is alert, awake and oriented x3. LABORATORY DATA: Her blood work today revealed a white count of 12.7, hemoglobin of 7.2, hematocrit of 27.7, MCV of 65.6 and a platelet count of 402. Chemistries are within normal limits as noted above. Her ferritin is very low as well as B12 and folic acid level. ASSESSMENT AND PLAN: Young female with a large left-sided pulmonary embolism, which is unprovoked. Continue anticoagulation with Lovenox at this point. She will need long-term anticoagulation with Eliquis, as well as a full hypercoagulable workup which will be done as an outpatient. She will be switched over to Eliquis upon discharge. She is also severely anemic consistent with iron-deficiency anemia. She does have PLASTIC SEWER bleeding. Needs a complete PLASTIC SEWER evaluation as well as an outpatient. We will continue IV iron at this point even as an outpatient. Thank you for the consult. We will follow up. Gabbi Pal MD
--- NOTE | 2017-03-27 23:39 | PN ---
DATE: 03/27/2017 PULMONARY PROGRESS NOTE REFERRING PHYSICIAN: Aleisha Fischer MD SUBJECTIVE: She is sitting in the bed. Family and friend at the bedside, feels okay. No headache. No rhinitis. No nausea, no vomiting or diarrhea. No leg pain or leg swelling. OBJECTIVE: GENERAL: In no acute distress. VITAL SIGNS: Temperature is 98, heart rate is 85, respiratory rate is 20, blood pressure is 122/87, pulse oximetry 98% on room air. HEENT: Moist mucous membranes. Crowded airway. NECK: Supple. No JVD. LUNGS: Have a fair airflow with rhonchi. HEART: S1 and S2. ABDOMEN: Soft and nontender. No organomegaly. EXTREMITIES: No edema. NEUROLOGIC: Awake, alert and follows simple commands. MEDICATIONS: She is on Eliquis 10 mg twice a day, iron sucrose 100 mg daily, MiraLax 17 g daily, Protonix 40 mg daily, Tessalon Perles 200 mg three times daily, vitamin B12 1000 mcg IM daily. LABORATORY DATA: Shows hemoglobin 7.2, hematocrit 27.7, WBC 12.7, and platelet count is 402. INR 1.25, PTT is 33. Sodium 142, potassium 4.0, chloride 107, bicarbonate 26, BUN 6, creatinine 0.7, glucose 91, and calcium is 9.0. AST 27, ALT 20, alkaline phosphatase is 91, and albumin is 3.6. Microbiology; blood culture and urine culture, there is no growth. IMPRESSION AND PLAN: Pulmonary embolism, iron deficiency anemia probably secondary to heavy bleeding, periods. Pulmonary point of view, doing okay. Continue follow H and H. Discharge planning. Thank you and we will follow with you. Cyndy Bruner MD
--- NOTE | 2017-03-28 04:00 | CON ---
DATE: 03/27/2017 REASON FOR CONSULTATION: Acute PE, bradycardia, 3-second pause. BRIEF CLINICAL HISTORY: This is a 36-year-old morbidly obese female with past medical history of hypertension, came in one week history with a complaint of shortness of breath, found to be acute PE. The patient had echocardiography done yesterday, that shows mobile structure 1.9 cm x 3.5 cm and he started , but given the history most likely it is thrombus. The patient denies any chest pain, shortness of breath, or any palpitation. PAST MEDICAL HISTORY: Significant for hypertension and obesity. FAMILY HISTORY: Noncontributory. No history of coronary artery disease. SOCIAL HISTORY: Denies any history of alcohol abuse, socially drinks. Denies any history of IVDA. ALLERGIES: TO PENICILLIN. CURRENT MEDICATIONS: The patient is on Lovenox here; at home none. PHYSICAL EXAMINATION: As follows; VITAL SIGNS: Height of the patient 5 feet and 4 inches, weight of the patient 285 pounds, body mass index 49.1 kg/m2, heart rate 94, and blood pressure 134/82. HEENT: PERRLA. Extraocular muscles intact. NECK: Supple. No carotid bruits or thyromegaly. CHEST: Clear to auscultation. HEART: S1 and S2 regular. ABDOMEN: Soft. EXTREMITIES: Clubbing and cyanosis negative. LABORATORY DATA: Blood workup as follow: WBC 12.3, hemoglobin 7.2, hematocrit 27.7, and platelet count 402. Chemistry showed sodium 142, potassium 4, chloride 107, carbon dioxide 26, anion gap of 13, BUN 6, creatinine of 0.7. IMPRESSION: Severe anemia, troponin remains negative, no evidence of acute myocardial infarction, morbidly obese, admitted with acute pulmonary embolism. A large pulmonary embolus seen in the left lower lobe artery as associated infarct and a small left artery effusion is noted. Bilateral lower extremity duplex, no evidence of pulmonary embolism. The patient had echocardiography done yesterday that shows ejection fraction 55%, right atrium borderline 1.9 x 3.5 cm mobile mass noted right at possibly atrium, but cannot rule out thrombus. When giving the clinical surgery most likely it is thrombus, history of anemia, and history of morbid obesity. RECOMMENDATIONS: Continue anticoagulation. Monitor H and H because the patient has a hemoglobin low. Needs GI workup and Heme/Onc evaluation. When patient last had bradycardia, we leave on telemetry for 24 hours most likely secondary to vagal, asymptomatic. We will follow with you. Thank you Dr. Fischer for providing me the opportunity in taking care of She Parisi. We will get lipid profile, TSH, and hemoglobin A1c. We will follow with you. Cyndy Parra MD
[2017-03-28] MEDS: Pantoprazole 40 mg EC Tab PO SCH (05:22)
[2017-03-28 06:29] LABS: BASO # 0.03 K/mm3 (0.0-2.0); BASO % 0.2 % (0.0-3.0); EOS # 0.2 (0.0-0.7); EOS % 1.3 % (1.5-5.0); GRAN # 9.02 (1.4-6.5); GRAN % 74.7 % (50.0-68.0); LYMPH % 16.6 % (22.0-35.0); MEAN CELL VOLUME 67.3 fl (80.0-105.0); MEAN CORPUSCULAR HEMOGLOBIN 17.6 pg (25.0-35.0); MEAN CORPUSCULAR HGB CONC 26.1 g/dl (31.0-37.0); MEAN PLATELET VOLUME 8.8 fl (7.0-11.0); MONO # 0.9 (0.1-0.6); MONO % 7.2 % (1.0-6.0); RBC 4.5 10^6/uL (3.5-6.1); RED CELL DISTRIBUTION WIDTH 19.9 % (11.5-14.5); WHITE BLOOD COUNT 12.1 10^3/ul (4.5-11.0)
[2017-03-28 06:55] LABS: MAGNESIUM 2.2 mg/dL (1.7-2.2)
[2017-03-28 07:20] LABS: ALB/GLOB RATIO 0.8 (1.1-1.8); ALBUMIN 3.8 g/dL (3.0-4.8); ALT/SGPT 29 U/L (7-56); AST/SGOT 43 U/L (14-36); BLOOD UREA NITROGEN 5 mg/dL (7-21); CALCIUM 9.3 mg/dL (8.4-10.5); GFR AFRICAN-AMERICAN > 60; GFR NON-AFRICAN AMERICAN > 60
[2017-03-28 07:34] LABS: HEMOGLOBIN 7.9 g/dL (12.0-16.0)
[2017-03-28] MEDS: POLYETHYLENE GLYCOL 3350 17 GM/Dose PACKET PO SCH (11:22)
--- NOTE | 2017-03-28 12:24 | CP.PCM.PN ---
<LaineSmith - Last Filed: 03/28/17 12:19> Subjective - Date & Time of Evaluation Date of Evaluation: 03/28/17 Time of Evaluation: 12:19 - Subjective Subjective: Medicine Progress Note Pt seen and examined at bedside. Pt had 3.2 second pause overnight, asymptomatic. Pt denies CP, SOB, nausea, vomiting, diarrhea, abdominal pain, fever, chills, MARQUEZ, and dizziness. Objective - Vital Signs/Intake and Output Vital Signs (last 24 hours): Temp Pulse Resp BP Pulse Ox 98.7 F 86 18 160/66 H 98 03/28/17 06:00 03/28/17 06:00 03/28/17 06:00 03/28/17 06:00 03/28/17 06:00 Intake and Output: 03/28/17 03/28/17 06:59 18:59 Intake Total 770 Output Total 0 Balance 770 - Medications Medications: Current Medications Apixaban (Eliquis) 10 mg PO BID [facility] PRN Reason: Protocol Last Admin: 03/28/17 11:22 Dose: 10 mg Benzonatate (Tessalon Perles) 200 mg PO TID [facility] Last Admin: 03/28/17 11:22 Dose: 200 mg Cyanocobalamin (Vitamin B12 1000 Mcg/Ml Inj) 1,000 mcg IM DAILY [facility] Stop: 03/30/17 13:42 Last Admin: 03/28/17 11:22 Dose: 1,000 mcg Iron Sucrose 100 mg/ Sodium (Chloride) 105 mls @ 210 mls/hr IVPB DAILY [facility] Stop: 03/29/17 10:29 Last Admin: 03/28/17 11:23 Dose: 210 mls/hr Pantoprazole Sodium (Protonix Ec Tab) 40 mg PO 0600 [facility] Last Admin: 03/28/17 05:22 Dose: 40 mg Polyethylene Glycol (Miralax) 17 gm PO DAILY [facility] Last Admin: 03/28/17 11:22 Dose: 17 gm - Labs Labs: 03/28/17 05:30 03/28/17 05:30 PT 13.8 SECONDS (9.4-12.5) H 03/27/17 06:10 INR 1.25 (0.93-1.08) H 03/27/17 06:10 APTT 33.3 Seconds (25.1-36.5) 03/27/17 06:10 - Constitutional Appears: No Acute Distress - Head Exam Head Exam: NORMAL INSPECTION - Eye Exam Eye Exam: Normal appearance - ENT Exam ENT Exam: Normal Exam - Neck Exam Neck Exam: Normal Inspection - Respiratory Exam Respiratory Exam: Clear to Ausculation Bilateral. absent: Rales, Rhonchi, Wheezes - Cardiovascular Exam Cardiovascular Exam: RRR, +S1, +S2. absent: Gallop, Rubs, Murmur - GI/Abdominal Exam GI & Abdominal Exam: Soft. absent: Distended, Guarding, Tenderness, Rebound - Extremities Exam Extremities Exam: Normal Inspection - Back Exam Back Exam: NORMAL INSPECTION - Neurological Exam Neurological Exam: Alert, Awake, Oriented x3 - Psychiatric Exam Psychiatric exam: Normal Affect, Normal Mood - Skin Skin Exam: Dry, Intact, Normal Color, Warm Assessment and Plan - Assessment and Plan (Free Text) Assessment: 36yo female with history of hypertension presents c/o chest pain secondary to pulmonary embolism. Found HR pause ~3 on consecutive nights likely 2/2 sleep apnea. Plan: 1. Pulmonary embolism - Dyspnea and pleuritic CP resolved - O2 sat normal on 6 minute walk - CTA showed large pulmonary embolus seen in the left lower lobe pulmonary artery with associated infarct and small left-sided effusion - EKG showed sinus tachycardia at 108bpm with nonspecific T wave abnormality - CXR revealed poor inspiration with low lung volume, crowded bronchovascular markings and mild bibasilar atelectasis - Lower extremity duplex negative for DVT - Echo showed LVEF 58.5% and thrombus found in right atrium - Eliquis 10 mg PO BID - Coagulopathy workup pending: factor V leidin, prothrombin, protein c, protein s, antiphospholipid - Procal WNL, abx not needed at this time - Pulmonology consulted - PT eval and treat 2. Iron Deficiency Anemia - Low iron and ferritin, elevated TIBC - Venofer daily - Miralax daily - Hematology consulted, recs appreciated Outpatient GI and [employer] evaluation 3. Hypertension -Reportedly not on oral antihypertensives; will monitor at this time 4. Abnormal pause on EKG - Cardio consulted Likely 2/2 to sleep apnea CPAP Recommend outpatient sleep study GI/DVT prophylaxis - Protonix - Eliquis Patient seen and case discussed/reviewed with attending, Dr. Ronn Jang, PGY <Cyndy Brody - Last Filed: 03/28/17 12:48> Objective - Vital Signs/Intake and Output Vital Signs (last 24 hours): Temp Pulse Resp BP Pulse Ox 98.7 F 90 18 160/66 H 98 03/28/17 06:00 03/28/17 10:00 03/28/17 06:00 03/28/17 06:00 03/28/17 06:00 Intake and Output: 03/28/17 03/28/17 06:59 18:59 Intake Total 770 Output Total 0 Balance 770 - Medications Medications: Current Medications Apixaban (Eliquis) 10 mg PO BID [facility] PRN Reason: Protocol Last Admin: 03/28/17 11:22 Dose: 10 mg Benzonatate (Tessalon Perles) 200 mg PO TID [facility] Last Admin: 03/28/17 11:22 Dose: 200 mg Cyanocobalamin (Vitamin B12 1000 Mcg/Ml Inj) 1,000 mcg IM DAILY [facility] Stop: 03/30/17 13:42 Last Admin: 03/28/17 11:22 Dose: 1,000 mcg Iron Sucrose 100 mg/ Sodium (Chloride) 105 mls @ 210 mls/hr IVPB DAILY [facility] Stop: 03/29/17 10:29 Last Admin: 03/28/17 11:23 Dose: 210 mls/hr Pantoprazole Sodium (Protonix Ec Tab) 40 mg PO 0600 [facility] Last Admin: 03/28/17 05:22 Dose: 40 mg Polyethylene Glycol (Miralax) 17 gm PO DAILY [facility] Last Admin: 03/28/17 11:22 Dose: 17 gm - Labs Labs: 03/28/17 05:30 03/28/17 05:30 PT 13.8 SECONDS (9.4-12.5) H 03/27/17 06:10 INR 1.25 (0.93-1.08) H 03/27/17 06:10 APTT 33.3 Seconds (25.1-36.5) 03/27/17 06:10 Attending/Attestation - Attestation I have personally seen and examined this patient.: Yes I have fully participated in the care of the patient.: Yes I have reviewed all pertinent clinical information, including history, physical exam and plan: Yes Notes (Text): 03/28/17 12:46 Patient was seen and examined with certified medical technician. Agreed with assessment and plan. 36 year old female with PMH of morbid obesity (BMI 46), hypertension non complaint with medications, chronic anemia, was admitted with atypical chest pain and shortness of breath. Patient was found to have large Pulmonary embolism in LLL with associated infarct and small effusion. The risk and benefit of warfarin and new novel anticoagulant was discussed in detail.Patient has decided o opt for Apixiban. Hemoglobin is stable while on anticoagulation.Patient has microcytic hypochromic anemia due to iron deficiency.Patient denies any GI blood lose , no H/O melena or bleeding per rectum Patient had sinus pause since last last2 night while on telemetry, was evaluated by cardiology,this could be due to sleep apnea.Patient will yse CPAP today, we will continue monitoring, if patient would have Sinus Pause while using CPAP , then may need Pacemaker. Life style modification recommended. Upon discharge patient will follow up with Dr Newton. Management plan was discussed in detail. Education was provided.
--- NOTE | 2017-03-28 18:35 | PN ---
DATE: 03/28/2017 REFERRING PHYSICIAN: Aleisha Fischer MD SUBJECTIVE: The patient is lying in the bed, head at 45 degree. Night was unremarkable. No headache. No rhinitis. No nausea, no vomiting or diarrhea. No leg pain or leg swelling. OBJECTIVE: GENERAL: In no acute distress. VITAL SIGNS: Temperature is 98, heart rate is 86, respiratory rate is 20, blood pressure is 104/70, pulse ox 98% on room air. HEENT: Moist mucous membranes. Crowded airway. NECK: Supple. No JVD. LUNGS: Have a fair airflow with a few rhonchi. HEART: S1 and S2. ABDOMEN: Soft and nontender. No organomegaly. EXTREMITIES: No edema. NEUROLOGIC: Awake, alert and follows simple commands. MEDICATIONS: She is on Eliquis 10 mg twice a day, IV iron sucrose 100 mg daily, MiraLax 17 gm daily, Protonix 40 mg daily, Tessalon Perles three times a day, vitamin B12 1000 mcg IM daily. LABORATORY DATA: Shows hemoglobin 7.9, hematocrit 30.3, WBC 12.1, and platelet is 410. Sodium 143, potassium 4.0, chloride 104, bicarbonate 28, BUN 5, creatinine 0.7, glucose 77, calcium is 9.3, phosphorus 3.9, magnesium 2.2. AST 43, ALT 29, alkaline phosphatase 92, albumin 3.8, TSH 4.93. IMPRESSION AND PLAN: Pulmonary embolism, iron deficiency anemia, probably secondary to heavy vaginal bleed. Pulmonary point of view, she is doing okay. Continue to follow H and H. Continue iron. Discharge planning if cleared by Hematology. Thank you and we will follow with you. Cyndy Bruner MD
[2017-03-29] MEDS: Pantoprazole 40 mg EC Tab PO SCH (06:27)
[2017-03-29 07:12] VITALS: BP 138/94; RESP 18; TEMP 99.1; O2SAT 100
--- NOTE | 2017-03-29 09:06 | PN ---
DATE: 03/28/2017 REASON FOR CONSULTATION: Acute PE; bradycardia, 3 second pauses, multiple, while the patient is sleeping; possible sleep apnea. BRIEF CLINICAL HISTORY: This is a 36-year-old morbidly obese female with past medical history significant for hypertension came in with one-week history with complaint of shortness of breath, found to be acute PE. Echo shows right atrium, on anticoagulation. During sleep, the patient had multiple pauses, while awake the patient has no pauses. The patient has very classical sleep apnea. Advised to get CPAP, but it could not be adjusted last night. PHYSICAL EXAMINATION: VITAL SIGNS: As follows, temperature afebrile, heart rate 83, and blood pressure 104/70. HEENT: PERRLA intact. NECK: Supple. No carotid bruit or thyromegaly. CHEST: Clear to auscultation. HEART: S1 and S2 regular. ABDOMEN: Soft. EXTREMITIES: Clubbing and cyanosis negative. LABORATORY DATA: Blood workup as follows. WBC 12.8, hemoglobin , hematocrit 30.2, and platelet count 410. Chemistry shows sodium 140, potassium 4, chloride 104, carbon dioxide 28, anion gap of 15, BUN of 5, and creatinine 0.7. IMPRESSION: Obstructive sleep apnea, the patient needs CPAP machine; history of pulmonary embolism; severe iron deficiency anemia, multiple pauses, most likely secondary to sleep apnea. I advised the patient to wear for 24 hours sleep machine and if no further pauses while the patient is on the CPAP, then the patient can be discharged. Young patient, probably most likely the vagal effect during sleep that cause pauses. Otherwise during the day time, no arrhythmia noted. Explained to the patient unnecessary we do not want to pacemaker if not really warranted. At this time, it looks like the patient at day time, there is no arrhythmia at all. During the sleep, the patient gets multiple pauses and remain asymptomatic. Advised the resident to arrange CPAP and monitor for 24 hours. During CPAP if no arrhythmia, the patient can be discharged tomorrow, but emphasis made to the patient to wear the CPAP at home. Explained to the patient, explained to the resident as well. Also, the patient's long-term anticoagulation because of unprovoked pulmonary embolism. Further recommendation as per assessment nurse and senior investment analyst. Patient definitely needs CPAP during sleep, but patient is obese. Height is 5 feet 4 inches, 288 pounds, body mass index 50 kg/m2 and typical classical had a sleep apnea. Patient's echocardiography done yesterday that shows thrombus in right atrium. Preserved LV function, ejection fraction 55%. Thank you Dr. Brody, for providing us the opportunity in taking care of the patient, She Parisi. Cyndy Parra MD
[2017-03-29 10:02] LABS: MEAN CELL VOLUME 68.3 fl (80.0-105.0); MEAN CORPUSCULAR HEMOGLOBIN 18.1 pg (25.0-35.0); MEAN CORPUSCULAR HGB CONC 26.4 g/dl (31.0-37.0); RBC 4.32 10^6/uL (3.5-6.1); RED CELL DISTRIBUTION WIDTH 21.1 % (11.5-14.5); WHITE BLOOD COUNT 12.6 10^3/ul (4.5-11.0)
[2017-03-29 10:05] LABS: HEMOGLOBIN 7.8 g/dL (12.0-16.0)
[2017-03-29 10:19] LABS: ALB/GLOB RATIO 0.8 (1.1-1.8); ALBUMIN 3.6 g/dL (3.0-4.8); ALT/SGPT 35 U/L (7-56); AST/SGOT 32 U/L (14-36); BLOOD UREA NITROGEN 6 mg/dL (7-21); GFR AFRICAN-AMERICAN > 60; GFR NON-AFRICAN AMERICAN > 60
[2017-03-29] MEDS: POLYETHYLENE GLYCOL 3350 17 GM/Dose PACKET PO SCH (10:52)
--- NOTE | 2017-03-29 13:48 | CP.PCM.DIS ---
<Smith Jang - Last Filed: 03/29/17 14:09> Provider - Provider Date of Admission: 03/24/17 15:11 Attending physician: Jolly Sauer MD Primary care physician: Jacki Newton MD Consults: Cardio: Fidel Pulm: Zohreh Hematology: Demarco Time Spent in preparation of Discharge (in minutes): 45 Hospital Course - Lab Results Lab Results: Micro Results 03/25/17 14:25 Urine Urine Culture - Final No Growth (<1,000 CFU/ML) Most Recent Lab Values WBC 12.6 10^3/ul (4.5-11.0) H 03/29/17 09:45 RBC 4.32 10^6/uL (3.5-6.1) 03/29/17 09:45 Hgb 7.8 g/dL (12.0-16.0) L 03/29/17 09:45 Hct 29.5 % (36.0-48.0) L 03/29/17 09:45 MCV 68.3 fl (80.0-105.0) L 03/29/17 09:45 MCH 18.1 pg (25.0-35.0) L 03/29/17 09:45 MCHC 26.4 g/dl (31.0-37.0) L 03/29/17 09:45 RDW 21.1 % (11.5-14.5) H 03/29/17 09:45 Plt Count 397 10^3/uL (120.0-450.0) 03/29/17 09:45 MPV 9.0 fl (7.0-11.0) 03/29/17 09:45 Gran % 74.7 % (50.0-68.0) H 03/28/17 05:30 Lymph % (Auto) 16.6 % (22.0-35.0) L 03/28/17 05:30 [place] % (Auto) 7.2 % (1.0-6.0) H 03/28/17 05:30 Eos % (Auto) 1.3 % (1.5-5.0) L 03/28/17 05:30 Baso % (Auto) 0.2 % (0.0-3.0) 03/28/17 05:30 Gran # 9.02 (1.4-6.5) H 03/28/17 05:30 Lymph # 2.0 (1.2-3.4) 03/28/17 05:30 [place] # 0.9 (0.1-0.6) H 03/28/17 05:30 Eos # 0.2 (0.0-0.7) 03/28/17 05:30 Baso # 0.03 K/mm3 (0.0-2.0) 03/28/17 05:30 Retic Count 2.10 % (0.5-1.5) H 03/24/17 05:00 PT 13.8 SECONDS (9.4-12.5) H 03/27/17 06:10 INR 1.25 (0.93-1.08) H 03/27/17 06:10 APTT 33.3 Seconds (25.1-36.5) 03/27/17 06:10 Protein C Activity 103 % (70-180) 03/24/17 16:50 Protein S Activity 72 % (60-140) 03/24/17 16:50 Antithrombin III Activ 85 % activity (80-120) 03/24/17 16:50 Factor V see note 03/24/17 16:50 Sodium 140 mmol/L (132-148) 03/29/17 09:45 Potassium 3.8 mmol/L (3.6-5.0) 03/29/17 09:45 Chloride 105 mmol/L (98-107) 03/29/17 09:45 Carbon Dioxide 26 mmol/L (21-33) 03/29/17 09:45 Anion Gap 13 (10-20) 03/29/17 09:45 BUN 6 mg/dL (7-21) L 03/29/17 09:45 Creatinine 0.8 mg/dl (0.7-1.2) 03/29/17 09:45 Est GFR ( Amer) > 60 03/29/17 09:45 Est GFR (Non-Af Amer) > 60 03/29/17 09:45 POC Glucose (mg/dL) 87 mg/dL (65-110) 03/26/17 21:49 Random Glucose 125 mg/dL (70-110) H 03/29/17 09:45 Hemoglobin A1c 6.1 % (4.2-6.5) 03/28/17 05:30 Calcium 9.0 mg/dL (8.4-10.5) 03/29/17 09:45 Phosphorus 3.9 mg/dL (2.5-4.5) 03/28/17 05:30 Magnesium 2.2 mg/dL (1.7-2.2) 03/28/17 05:30 Iron 17 ug/dL (45-180) L 03/24/17 16:50 TIBC 368 ug/dL (265-497) 03/24/17 16:50 % Saturation 5 % (20-55) L 03/24/17 16:50 Transferrin 137.19 mg/dL (206-381) L 03/24/17 16:50 Ferritin 3.9 ng/mL 03/24/17 16:50 Total Bilirubin 0.3 mg/dL (0.2-1.3) 03/29/17 09:45 AST 32 U/L (14-36) 03/29/17 09:45 ALT 35 U/L (7-56) 03/29/17 09:45 Alkaline Phosphatase 83 U/L (38-126) 03/29/17 09:45 Lactate Dehydrogenase 763 U/L (333-699) H 03/24/17 05:00 Total Creatine Kinase 186 U/L (35-230) 03/24/17 05:00 Troponin I < 0.01 ng/mL 03/24/17 21:40 Total Protein 8.0 g/dL (5.8-8.3) 03/29/17 09:45 Albumin 3.6 g/dL (3.0-4.8) 03/29/17 09:45 Globulin 4.5 gm/dL 03/29/17 09:45 Albumin/Globulin Ratio 0.8 (1.1-1.8) L 03/29/17 09:45 Triglycerides 125 mg/dL (35-160) 03/28/17 05:30 Cholesterol 146 mg/dL (130-200) 03/28/17 05:30 LDL Cholesterol Direct 90 mg/dL (0-129) 03/28/17 05:30 HDL Cholesterol 25 mg/dL (29-60) L 03/28/17 05:30 Vitamin B12 262 pg/mL (239-931) 03/24/17 16:50 Folate 12.7 ng/mL 03/24/17 16:50 Procalcitonin < 0.05 NG/ML (0.19-0.49) L 03/25/17 09:15 TSH 3rd Generation 4.93 mIU/mL (0.46-4.68) H 03/28/17 05:30 Urine Color Yellow (YELLOW) 03/25/17 14:25 Urine Appearance Clear (CLEAR) 03/25/17 14:25 Urine pH 6.5 (4.7-8.0) 03/25/17 14:25 Ur Specific Vermilion 1.010 (1.005-1.035) 03/25/17 14:25 Urine Protein Negative mg/dL (<30 mg/dL) 03/25/17 14:25 Urine Glucose (UA) Negative mg/dL (NEGATIVE) 03/25/17 14:25 Urine Ketones Negative mg/dL (NEGATIVE) 03/25/17 14:25 Urine Blood Negative (NEGATIVE) 03/25/17 14:25 Urine Nitrate Negative (NEGATIVE) 03/25/17 14:25 Urine Bilirubin Negative (NEGATIVE) 03/25/17 14:25 Urine Urobilinogen 0.2 E.U./dL (<1 E.U./dL) 03/25/17 14:25 Ur Leukocyte Esterase Negative Markos/uL (NEGATIVE) 03/25/17 14:25 Urine Opiates Screen Negative (NEGATIVE) 03/25/17 14:25 Urine Methadone Screen Negative (NEGATIVE) 03/25/17 14:25 Ur Barbiturates Screen Negative (NEGATIVE) 03/25/17 14:25 Ur Phencyclidine Scrn Negative (NEGATIVE) 03/25/17 14:25 Ur Amphetamines Screen Negative (NEGATIVE) 03/25/17 14:25 U Benzodiazepines Scrn Negative (NEGATIVE) 03/25/17 14:25 U Oth Cocaine Metabols Negative (NEGATIVE) 03/25/17 14:25 U Cannabinoids Screen Negative (NEGATIVE) 03/25/17 14:25 Spzd-1-[id number] Ab <9 CHIVO (<=20) 03/24/17 16:50 Beta-2 GPI IgG Ab <9 SGU (<=20) 03/24/17 16:50 Beta-2 GPI IgM Ab 10 SMU (<=20) 03/24/17 16:50 Phosphatidylserine IgG <10 U/mL (<10) 03/24/17 16:50 Phosphatidylserine IgA <20 U/mL (<20) 03/24/17 16:50 Phosphatidylserine IgM <25 U/mL (<25) 03/24/17 16:50 Anti-Phospholipid Intrp see note 03/24/17 16:50 Anti-Cardiolipin IgG Ab <14 GPL (<=14) 03/24/17 16:50 Anti-Cardiolipin IgA Ab <11 APL (<=11) 03/24/17 16:50 Anti-Cardiolipin IgM Ab <12 MPL (<=12) 03/24/17 16:50 Prothrombin Mut Interp see note 03/24/17 16:50 Prothrombin Gene Mutate see note 03/24/17 16:50 Prothromb Gene Review see note 03/24/17 16:50 - Hospital Course Hospital Course: Patient is a 36yo female with past medical history of hypertension that presented c/o chest pain. She reported that the chest pain began 1 week prior to admission and was associated with shortness of breath. She reported having come [facility] the for similar symptoms and signed out AMA at that time. Pt reported that her chest pain has been worsening over the last week and she has difficulty breathing most notably on inspiration. She stated that the chest pain also started radiating to her left shoulder. She admitted to subjective fevers and chills. In the ED, CTA with PE protocol was done and was notable for PE in left lower lobe. Patient was subsequently admitted for further evaluation/treatment. During hospital course, pulmonology was consulted , recommendations were appreciated. Patient was placed on therapeutic dose of lovenox for PE. Once patient symptoms resolved, she was transitioned to PO Eliquis. Pt was counseled on the risks and benefits of anticoaguation. Echo showed LVEF 58.5% and thrombus found in right atrium. Hematology was consulted due to decreased Hgb and unprovoked PE. Further workup revealed that patient had iron deficiency anemia. However, patient H/H remained stable and had no overt signs of bleeding. Pt was placed on IV iron. It was recommended to patient to follow up with hematology and have outpatient GI and BRIDGE MAINTAINER evaluation. Hypercoagulability workup was negative. However, would recommend repeat tests as outpatient. Cardiology was consulted due to > 3 second HR pause overnight. Pt NSR during day. Cardio suggested that the period of asystole was likely vagal 2/2 sleep apnea. Patient was trialed on CPAP overnight, however HR pauses still occured. Thus, the patient will follow up with Dr. Mckeon, interventional cardiologist, at [facility] for further investigation. Patient was also advised to follow up with Dr. Bruner for sleep study. Today, patient was seen and examined at bedside. As the patient was cleared from all consultants, she was discharged. Pt was given Rx for Eliquis 10 mg for 3 more days and then Eliquis 5 mg for at least 6 months. Patient willl follow up with her PMD for monitoring and rx refills. Discharge Diagnosis 1. Pulmonary embolism 2. Iron Deficiency Anemia 3. Brief asystole on EKG Discharge Medications - Eliquis 10 mg PO BID x3 days - Eliquis 5 mg PO BID x30 days - Tessalon perles 200 mg PO TID prn - Ferrous sulfate 324 mg PO daily - Miralax 17 gm PO daily Discharge Exam - Head Exam Head Exam: NORMAL INSPECTION - Eye Exam Eye Exam: Normal appearance - ENT Exam ENT Exam: Normal Exam - Neck Exam Neck exam: Normal Inspection - Respiratory Exam Respiratory Exam: Clear to PA & Lateral. absent: Accessory Muscle Use, Rales, Rhonchi, Wheezes, Respiratory Distress - Cardiovascular Exam Cardiovascular Exam: RRR, +S1, +S2. absent: Diastolic murmur, Gallop, Rubs, Systolic Murmur - GI/Abdominal Exam GI & Abdominal Exam: Soft. absent: Distended, Guarding, Rebound, Tenderness - Extremities Exam Extremities exam: normal inspection - Back Exam Back exam: NORMAL INSPECTION - Neurological Exam Neurological exam: Alert, Oriented x3 - Psychiatric Exam Psychiatric exam: Normal Affect, Normal Mood - Skin Skin Exam: Dry, Intact, Normal Color, Warm Discharge Plan - Discharge Medications Prescriptions: Apixaban [Eliquis] 10 mg PO BID 3 Days tab Apixaban [Eliquis] 5 mg PO BID 30 Days tab Benzonatate [Tessalon Perles] 200 mg PO TID #30 sgl Ferrous Sulfate 325 mg PO DAILY #30 tablet Polyethylene Glycol 3350 [Miralax] 17 gm PO DAILY #30 ml - Follow Up Plan Condition: STABLE Disposition: HOME/ ROUTINE Instructions: Pulmonary Embolism (DC), Sleep Apnea (DC), Iron Rich Diet (DC), Heart Healthy Diet (DC), Anemia (DC) Additional Instructions: 1. Follow up with Primary MD within 1 week 2. Follow up with Dr. Mckeon, Environmental Field Technician, at [facility]. His office will contact you. If you do not receive a call by Saturday, please call his office at [phone]. 3. Follow up with Dr. Parra, road supervisor of engines within 1 week. [phone]. 4. Follow up with Dr. Bruner, pulmonology within 1 week for sleep study for likely sleep apnea 5. Follow up with Dr. Pal, hematology within 1 week 6. Recommend GI and BRIDGE MAINTAINER evaluation due to anemia, follow up with PMD if referrals are needed 7. Take Eliquis 10 mg by mouth twice a day for 3 more days, then take Eliquis 5 mg by mouth twice a day for at least 6 months 8. Take iron pills and miralax daily 9. Return to ED if symptoms worsen Referrals: Jacki Newton MD [Primary Care Provider] - Cyndy Parra MD [Staff Provider] - Gabbi Pal MD [Staff Provider] - Cyndy Bruner MD [Staff Provider] - <Jolly Sauer - Last Filed: 04/01/17 07:48> Provider - Provider Date of Admission: 03/24/17 15:11 Attending physician: Jolly Sauer MD Primary care physician: Jacki Newton MD Hospital Course - Lab Results Lab Results: Micro Results 03/25/17 14:25 Urine Urine Culture - Final No Growth (<1,000 CFU/ML) Most Recent Lab Values WBC 12.6 10^3/ul (4.5-11.0) H 03/29/17 09:45 RBC 4.32 10^6/uL (3.5-6.1) 03/29/17 09:45 Hgb 7.8 g/dL (12.0-16.0) L 03/29/17 09:45 Hct 29.5 % (36.0-48.0) L 03/29/17 09:45 MCV 68.3 fl (80.0-105.0) L 03/29/17 09:45 MCH 18.1 pg (25.0-35.0) L 03/29/17 09:45 MCHC 26.4 g/dl (31.0-37.0) L 03/29/17 09:45 RDW 21.1 % (11.5-14.5) H 03/29/17 09:45 Plt Count 397 10^3/uL (120.0-450.0) 03/29/17 09:45 MPV 9.0 fl (7.0-11.0) 03/29/17 09:45 Gran % 74.7 % (50.0-68.0) H 03/28/17 05:30 Lymph % (Auto) 16.6 % (22.0-35.0) L 03/28/17 05:30 [place] % (Auto) 7.2 % (1.0-6.0) H 03/28/17 05:30 Eos % (Auto) 1.3 % (1.5-5.0) L 03/28/17 05:30 Baso % (Auto) 0.2 % (0.0-3.0) 03/28/17 05:30 Gran # 9.02 (1.4-6.5) H 03/28/17 05:30 Lymph # 2.0 (1.2-3.4) 03/28/17 05:30 [place] # 0.9 (0.1-0.6) H 03/28/17 05:30 Eos # 0.2 (0.0-0.7) 03/28/17 05:30 Baso # 0.03 K/mm3 (0.0-2.0) 03/28/17 05:30 Retic Count 2.10 % (0.5-1.5) H 03/24/17 05:00 PT 13.8 SECONDS (9.4-12.5) H 03/27/17 06:10 INR 1.25 (0.93-1.08) H 03/27/17 06:10 APTT 33.3 Seconds (25.1-36.5) 03/27/17 06:10 Protein C Activity 103 % (70-180) 03/24/17 16:50 Protein S Activity 72 % (60-140) 03/24/17 16:50 Antithrombin III Activ 85 % activity (80-120) 03/24/17 16:50 Factor V see note 03/24/17 16:50 Sodium 140 mmol/L (132-148) 03/29/17 09:45 Potassium 3.8 mmol/L (3.6-5.0) 03/29/17 09:45 Chloride 105 mmol/L (98-107) 03/29/17 09:45 Carbon Dioxide 26 mmol/L (21-33) 03/29/17 09:45 Anion Gap 13 (10-20) 03/29/17 09:45 BUN 6 mg/dL (7-21) L 03/29/17 09:45 Creatinine 0.8 mg/dl (0.7-1.2) 03/29/17 09:45 Est GFR ( Amer) > 60 03/29/17 09:45 Est GFR (Non-Af Amer) > 60 03/29/17 09:45 POC Glucose (mg/dL) 87 mg/dL (65-110) 03/26/17 21:49 Random Glucose 125 mg/dL (70-110) H 03/29/17 09:45 Hemoglobin A1c 6.1 % (4.2-6.5) 03/28/17 05:30 Calcium 9.0 mg/dL (8.4-10.5) 03/29/17 09:45 Phosphorus 3.9 mg/dL (2.5-4.5) 03/28/17 05:30 Magnesium 2.2 mg/dL (1.7-2.2) 03/28/17 05:30 Iron 17 ug/dL (45-180) L 03/24/17 16:50 TIBC 368 ug/dL (265-497) 03/24/17 16:50 % Saturation 5 % (20-55) L 03/24/17 16:50 Transferrin 137.19 mg/dL (206-381) L 03/24/17 16:50 Ferritin 3.9 ng/mL 03/24/17 16:50 Total Bilirubin 0.3 mg/dL (0.2-1.3) 03/29/17 09:45 AST 32 U/L (14-36) 03/29/17 09:45 ALT 35 U/L (7-56) 03/29/17 09:45 Alkaline Phosphatase 83 U/L (38-126) 03/29/17 09:45 Lactate Dehydrogenase 763 U/L (333-699) H 03/24/17 05:00 Total Creatine Kinase 186 U/L (35-230) 03/24/17 05:00 Troponin I < 0.01 ng/mL 03/24/17 21:40 Total Protein 8.0 g/dL (5.8-8.3) 03/29/17 09:45 Albumin 3.6 g/dL (3.0-4.8) 03/29/17 09:45 Globulin 4.5 gm/dL 03/29/17 09:45 Albumin/Globulin Ratio 0.8 (1.1-1.8) L 03/29/17 09:45 Triglycerides 125 mg/dL (35-160) 03/28/17 05:30 Cholesterol 146 mg/dL (130-200) 03/28/17 05:30 LDL Cholesterol Direct 90 mg/dL (0-129) 03/28/17 05:30 HDL Cholesterol 25 mg/dL (29-60) L 03/28/17 05:30 Vitamin B12 262 pg/mL (239-931) 03/24/17 16:50 Folate 12.7 ng/mL 03/24/17 16:50 Procalcitonin < 0.05 NG/ML (0.19-0.49) L 03/25/17 09:15 TSH 3rd Generation 4.93 mIU/mL (0.46-4.68) H 03/28/17 05:30 Urine Color Yellow (YELLOW) 03/25/17 14:25 Urine Appearance Clear (CLEAR) 03/25/17 14:25 Urine pH 6.5 (4.7-8.0) 03/25/17 14:25 Ur Specific [place] 1.010 (1.005-1.035) 03/25/17 14:25 Urine Protein Negative mg/dL (<30 mg/dL) 03/25/17 14:25 Urine Glucose (UA) Negative mg/dL (NEGATIVE) 03/25/17 14:25 Urine Ketones Negative mg/dL (NEGATIVE) 03/25/17 14:25 Urine Blood Negative (NEGATIVE) 03/25/17 14:25 Urine Nitrate Negative (NEGATIVE) 03/25/17 14:25 Urine Bilirubin Negative (NEGATIVE) 03/25/17 14:25 Urine Urobilinogen 0.2 E.U./dL (<1 E.U./dL) 03/25/17 14:25 Ur Leukocyte Esterase Negative Markos/uL (NEGATIVE) 03/25/17 14:25 Urine Opiates Screen Negative (NEGATIVE) 03/25/17 14:25 Urine Methadone Screen Negative (NEGATIVE) 03/25/17 14:25 Ur Barbiturates Screen Negative (NEGATIVE) 03/25/17 14:25 Ur Phencyclidine Scrn Negative (NEGATIVE) 03/25/17 14:25 Ur Amphetamines Screen Negative (NEGATIVE) 03/25/17 14:25 U Benzodiazepines Scrn Negative (NEGATIVE) 03/25/17 14:25 U Oth Cocaine Metabols Negative (NEGATIVE) 03/25/17 14:25 U Cannabinoids Screen Negative (NEGATIVE) 03/25/17 14:25 Xype-6-Cefitcwqbmrd Ab <9 CHIVO (<=20) 03/24/17 16:50 Beta-2 GPI IgG Ab <9 SGU (<=20) 03/24/17 16:50 Beta-2 GPI IgM Ab 10 SMU (<=20) 03/24/17 16:50 Phosphatidylserine IgG <10 U/mL (<10) 03/24/17 16:50 Phosphatidylserine IgA <20 U/mL (<20) 03/24/17 16:50 Phosphatidylserine IgM <25 U/mL (<25) 03/24/17 16:50 Anti-Phospholipid Intrp see note 03/24/17 16:50 Anti-Cardiolipin IgG Ab <14 GPL (<=14) 03/24/17 16:50 Anti-Cardiolipin IgA Ab <11 APL (<=11) 03/24/17 16:50 Anti-Cardiolipin IgM Ab <12 MPL (<=12) 03/24/17 16:50 Prothrombin Mut Interp see note 03/24/17 16:50 Prothrombin Gene Mutate see note 03/24/17 16:50 Prothromb Gene Review see note 03/24/17 16:50 Attending/Attestation - Attestation I have personally seen and examined this patient.: Yes I have fully participated in the care of the patient.: Yes I have reviewed all pertinent clinical information, including history, physical exam and plan: Yes Notes (Text): 04/01/17 07:44 Hospitalist note: Patient was seen and examined with medical radiation tech. Patient is a 36 year old female with PMH of morbid obesity (BMI 46), hypertension non complaint with medications, chronic anemia, was admitted with atypical chest pain and shortness of breath. Patient was found to have large Pulmonary embolism in left lower lobe pneumonia with small effusion. Currently on Eliquis. Stable respiratory status. Hemoglobin is stable while on anticoagulation.Patient has microcytic hypochromic anemia due to iron deficiency. No active bleeding. Seen by oncology Dr. Pal. Needs close follow-up. Patient had sinus pause. Cardiology evaluation appreciated. Possible improved with CPAP use. Case discussed with pulmonary Dr. Bruner. Needs sleep study as outpatient for the possible need for CPAP. Patient was referred to DR. Noguera at [facility] for rectal physiology study and treatment. Life style modification recommended. Upon discharge patient will follow up with Dr Newtno. Diagnosis; Pulmonary embolism Obesity Anemia Possible sleep apnea sinus pause
[2017-03-29 13:59] VITALS: PULSE 98
--- NOTE | 2017-03-29 19:08 | PN ---
DATE: 03/29/2017 PULMONARY PROGRESS NOTE REFERRING PHYSICIAN: Aleisha Fischer MD SUBJECTIVE: She is sitting up in the bed. Night was remarkable that she was desaturated, requiring BiPAP. No chest pain. No nausea. No leg pain or leg swelling. OBJECTIVE: GENERAL: In no acute distress. VITAL SIGNS: Temperature is 99, heart rate is 86, respiratory rate is 18, blood pressure is 138/95, and pulse oximetry 100% on room air. HEENT: Moist mucous membranes. Crowded airway. NECK: Supple. No JVD. LUNGS: Fair airflow with rhonchi. HEART: S1 and S2. ABDOMEN: Soft and nontender. No organomegaly. EXTREMITIES: There is no edema. NEUROLOGIC: Awake, alert and follows simple commands. MEDICATIONS: She is on Eliquis 10 mg twice a day, MiraLax 17 g daily, Protonix 40 mg daily, Tessalon Perles 200 mg 3 times daily, and vitamin B12 1000 mcg IM daily. LABORATORY DATA: Shows hemoglobin 7.8, hematocrit 29.5, WBC 12.6, and platelet count is 397. Sodium 140, potassium 3.8, chloride 105, bicarbonate 26, BUN 6, creatinine 0.8, glucose 125, and calcium is 9.0. AST 32, ALT 35, alkaline phosphatase is 83, and albumin is 3.6. TSH is 4.93. Microbiology, blood culture, urine culture, there is no growth. IMPRESSION AND PLAN: Pulmonary embolism, iron deficiency anemia, probably of sleep apnea syndrome. Pulmonary point of view, doing okay. She could be discharged home as long as she need to follow H&H, also need iron as an outpatient. She will benefit from attended sleep study as a nocturnal desaturation and daytime sleeping. Thank you and we will follow with you. Cyndy Bruner MD
--- NOTE | 2017-03-29 22:06 | PN ---
DATE: 03/29/2017 LOCATION: The patient is in room 373, bed 2. REASON FOR CONSULTATION AND FOLLOWUP: Acute pulmonary embolism, bradycardia, 3 second pause, multiple pauses while the patient was sleeping, possible sleep apnea. BRIEF HISTORY: A 36-year-old morbidly obese female with past medical history significant for hypertension came in with 1 week history of shortness of breath, found to have acute pulmonary embolism, during the sleep the patient had multiple pauses, while awake the patient had no pauses. The patient has very classical sleep apnea clinical picture. The patient now from breathing point of view feels better. Denies any chest pain. Denies palpitation. Denies any dizziness. PHYSICAL EXAMINATION VITAL SIGNS: Blood pressure is 138/94, respirations are 18, pulse is 86, and temperature is 99.1. HEENT: Head is normocephalic. Eyes; pupils are normal. Conjunctivae slightly pale. NECK: JVP low. Carotids are equal. THORAX: AP diameter normal. LUNGS: Clear. CARDIOVASCULAR: S1 and S2. ABDOMEN: Soft. No organomegaly. Bowel sounds normal. EXTREMITIES: No clubbing. No cyanosis. LABORATORY DATA: WBC 12.6, hemoglobin 7.8, hematocrit 29.5 and platelets 397. Sodium 140, potassium 3.8, BUN 6, creatinine 0.8 and random sugar 125. AST and ALT normal and alkaline phosphatase is normal. Total protein 8. 0 and albumin 3.6. DIAGNOSES: Obstructive sleep apnea, the patient needs continuous positive airway pressure. Cardiac arrhythmia most probably related to her sleep apnea, anemia, morbid obesity and hypertension. PLAN: Advise the patient to arrange CPAP and try for 24 hour see if there is any arrhythmia; however, the patient is young patient. Her clinical picture seems to be that her bradycardia episode, pauses is related to sleep apnea because daytime she does not get any pauses, so we arranged her electrophysiological study at [facility] with Dr. Noguera and the patient will go as an outpatient for electrophysiological study. In the meantime, still we think the patient's bradycardia at sleeping is related to her sleep apnea and the patient should use BiPAP and follow monitoring them from that point. The patient's echo was done on this admission. 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 The patient has pulmonary embolism, so most likely this mass is thrombus. The patient is already on anticoagulation. We will follow. Cyndy Plascencia MD
== END 2017-03-29 15:03 | disposition home or self-care (01) | DRG 78 ==
LOC: ED 04:43 → ERH 15:11 → 3RNO 18:26 → 3RSO 03-26 22:57
PROVIDERS: ADMIT Hospitalist; ATTEND Internal Medicine
PROC: 5A09357 Assistance with Respiratory Ventilation, Less than 24 Consecutive Hours, Continuous Positive Airway Pressure (ICD-10-PCS; principal; 2017-03-28)
DX: I26.99 Other pulmonary embolism without acute cor pulmonale (principal); I10 Essential (primary) hypertension; D50.9 Iron deficiency anemia, unspecified; E66.01 Morbid (severe) obesity due to excess calories; G47.33 Obstructive sleep apnea (adult) (pediatric); R00.1 Bradycardia, unspecified; Z68.42 Body mass index [BMI] 45.0-49.9, adult; Z88.0 Allergy status to penicillin